=== PATIENT | female | born 1935 | race Caucasian/White ===

== ENCOUNTER 2019-01-30 14:51 | Observation (INO) ==
--- NOTE | 2019-01-30 15:14 | ERNOTE ---
Medical Problem HPI - General Time Seen by Provider: 01/30/19 14:51 Source: patient Exam Limitations: clinical condition - Immun/Allergies/Home Medications Immunizations: IMMUNIZATION HX Immunizations Up to Date Yes History of Influenza Vaccine Yes Hx Pneumococcal Vaccination Yes Allergies/Adverse Reactions: Allergies No Known Allergies Allergy (Verified 01/30/19 14:59) Home Medications: HOME MEDICATIONS Aspirin [Aspirin Chewable] 81 mg PO DAILY 03/25/18 [Last Taken 09/03/18] Donepezil HCl [Aricept] 5 mg PO DAILY 03/25/18 [Last Taken 09/03/18] memantine 5 mg tablet 5 mg PO BID 09/24/18 [Last Taken Unknown] Albuterol Sulfate [Albuterol Sulfate 2.5 MG/0.5ML] 1 vial INHALATION QID 01/30/19 [Last Taken Unknown] Albuterol Sulfate/Ipratropium [Duoneb 2.5-0.5MG/3ML Soln] 3 ml INHALATION PRN 01/30/19 [Last Taken Unknown] - History of Present History Narrative: Patient has dementia. According to her son who lives with her she has been declining over the last 2-3 days, has not had much to eat or drink, has not made it out of bed and has been very little responsive today. She fell a few days ago, no reported head injury. When asking about bleeds as patient look pale, son states that he notices blood smears in the toilet bowl but doesn't know where the blood came from. Patient is unable to give story Medical History (Last Reviewed 01/30/19 @ 16:43 by Cynthia Montenegro MD) Alzheimer's dementia COPD (chronic obstructive pulmonary disease) CVA (cerebral vascular accident) Onset Date: Unknown Cellulitis Left wrist pain Onset Date: ~08/2018 Surgical History: Surgical History (Last Reviewed 01/30/19 @ 16:43 by Cynthia Montenegro MD) H/O removal of cyst Onset Date: Unknown left wrist Family History: Family History (Last Reviewed 01/30/19 @ 14:58 by Bhavani Hernandez RN) Mother Father Social History: Preferred Language Fijian Smoking Status Former smoker Abuse History No History of abuse Psych History No pertinent hx (Last Updated 09/24/18 @ 11:48 by RG Balderas) No Social History Section defined Physical Exam - Physical Exam General Appearance: Present: wd/wn, lethargic, other - at times responds to pain at other times opens eyes when spoken to and mumbles in response Head Exam: Present: normal inspection, no evidence of injury Eye Exam: Normal inspection: bilateral, PERRL: bilateral Ears, Nose, Throat: Present: normal pharynx, dry mucous membranes Respiratory: Present: no respiratory distress, no accessory muscle use, lungs clear, decreased breath sounds Cardiovascular/Chest: Present: regular rate, rhythm, no murmur Gastrointestinal/Abdominal: Present: nondistended, soft Extremity Exam: Present: no edema Neurological Exam: Present: other Skin Exam: Present: warm/dry, pallor Progress - Results and Orders Patient's Lab Results:: I have reviewed the patient's lab results. - Vital Signs Patient's Vital Signs:: I have reviewed the patient's vital signs. - EKG EKG #1 EKG: NSR, nonspecific ST T wave changes EKG read: Interp. by me - CT/Ultrasound CT/Ultrasound Narrative: CT head: no acute changes - Progress/Reassessment Progress Note-Subjective: 01/30/19 15:12 discussed with son, full code status at this time 01/30/19 16:08 discussed test results with son, anemia might be caused by GI bleed related to aspirin and recent indocin use a few months ago discussed with Dr Walton, okay to admit for observation for dehydration and anemia, Hb 7.4 expect to drop below 7 with hydration, also history of CVA and dementia worsened by anemia, will give one unit of RBCs Departure Clinical Impression: Dehydration, Memory impairment, Mental status, decreased Anemia Qualifiers: Anemia type: unspecified type Qualified Code(s): D64.9 - Anemia, unspecified - Departure Disposition: Still a patient Condition: Stable
[2019-01-30 15:16] LABS: Hematocrit 25.8 % (37.0-47.0); Mean Cell Volume 85.7 fl (78-100); Mean Corpuscular Hemoglobin 24.6 pg (27-31); Mean Corpuscular Hgb Conc 28.7 g/dl (32-36); Mean Platelet Volume 10.3 fl (8-12.5); Neutrophil # 5.2 K/mm3 (1.3-6.0); Neutrophil % 81.8 % (42-75.0); Platelet Count 257 K/mm3 (150-450); Red Blood Count 3.01 M/mm3 (4.2-5.4); Red Cell Distribution Width 16.4 % (11.5-14.0); White Blood Count 6.3 K/mm3 (4.0-10.5)
[2019-01-30 15:22] LABS: Hemoglobin 7.4 gm/dL (12.5-16.0)
[2019-01-30] MEDS ORDERED: NORMAL SALINE 1,000 ML IV ONE (15:30)
[2019-01-30 15:33] LABS: Albumin * 3.1 gm/dl (3.4-5.0); Anion Gap 23.8 mmol/L (6.8-13.8); BUN/Creatinine Ratio 27.9 (9.0-21.6); Bilirubin, Total 1.5 mg/dL (0.0-1.1); Ca. Corrected For Albumin 9.7 mg/dL (8.4-10.2); Calcium * 9.3 mg/dL (7.9-10.9); Carbon Dioxide 17.4 mmol/L (24-32.6); Potassium 4.2 mmol/L (3.4-4.6); Total Protein 7.4 gm/dL (6.2-8.2)
[2019-01-30 15:43] LABS: Urine Appearance Clear (CLEAR); Urine Color Yellow
[2019-01-30 15:44] LABS: Urine Bilirubin Negative (NEGATIVE); Urine Blood Negative /ul (NEGATIVE); Urine Ketone 15 mg/dL (NEGATIVE); Urine Nitrite Negative (NEGATIVE); Urine Protein Negative (NEGATIVE); Urine Specific Gravity 1.025 SP.GR. (1.005-1.010); Urine Urobilinogen Normal (NORMAL); Urine pH 5.5 pH (5.0-7.0)
[2019-01-30 15:45] LABS: Urine Bacteria None Seen; Urine RBC None Seen /hpf (0-5); Urine WBC None Seen /hpf (0-5)
[2019-01-30] MEDS ORDERED: ACETAMINOPHEN 325 MG TABLET PO ONE (16:02)
[2019-01-30] MEDS ORDERED: ACETAMINOPHEN 325 MG TABLET PO PRN (19:55)
--- NOTE | 2019-01-30 20:15 | HP ---
Chief Complaint - Chief Complaint Date of Service: 01/30/19 Time of Service: 20:01 Chief Complaint: I feel weak History of Present Illness: 83-year-old female with past medical history of vascular dementia, old CVA, COPD, was brought to our ER due to worsening generalized weakness, anorexia of several days duration, and an inability to get out of bed according to her son. The provider of the history was a patient's son who reports that 3 days ago he found his mother on the floor after an apparent unwitnessed fall but denied loss of consciousness or any trauma to the patient's head. The son reports that after the fall the patient became more hypoactive and refused to eat or drink and that she has not had any food or fluids for more than 2 days. This morning patient was unable to rise in the bed and became less responsive than usual which concerned him enough to make him bring her to the hospital. Of interest, the patient's son reports that several weeks ago he noticed bright red blood and her stools in the toilet bowl. He was unable to recall the last time he witnessed this. ER labs demonstrated anemia with a hemoglobin of 7.4, and elevated BUN and creatinine likely secondary to her dehydration. Head CT was n egative for any acute findings. Medical History (Last Reviewed 01/30/19 @ 18:51 by Yocasta Mahoney RN) Alzheimer's dementia COPD (chronic obstructive pulmonary disease) CVA (cerebral vascular accident) Onset Date: Unknown Cellulitis Left wrist pain Onset Date: ~08/2018 Surgical History: Surgical History (Last Reviewed 01/30/19 @ 18:51 by Yocasta Mahoney RN) H/O removal of cyst Onset Date: Unknown left wrist Family History: Family History (Last Reviewed 01/30/19 @ 18:51 by Yocasta Mahoney RN) Mother Father Social History: Patient Lives/Resources Home Utilized Occupation retired Preferred Language Honduran Do you have any mandaen or No cultural preference? Smoking Status Former smoker Have you smoked in the past 12 No months Abuse History No History of abuse Psych History No pertinent hx Alcohol Use none Drug Use none (Last Updated 09/24/18 @ 11:48 by RG Balderas) No Social History Section defined Peds Patient Hx - Developmental: No Pertinent Hx Peds Patient Hx - Medical: No Pertinent Hx Peds Patient Hx - Cardiac/Respiratory: No Pertinent Hx Peds Patient Hx - Surgical: No Surgical History Patient History - Cancer: No Hx of Cancer Review Of Systems (GEN) - Review of Systems Generalized/Overall Review: Present: Weakness, Malaise EENTM: Present: No Symptoms Reported Respiratory: Present: No Symptoms Reported Cardiac: Present: No Symptoms Reported Abdominal: Present: Bright blood from rectum Genitourinary: Present: No Symptoms Reported Musculoskeletal: Present: No Symptoms Reported Neurological: Present: Weakness, Pre-existing Deficit Skin: Present: No Symptoms Reported Endocrine: Present: No Symptoms Reported Immunizations: IMMUNIZATION HX Immunizations Up to Date Yes History of Influenza Vaccine Yes Hx Pneumococcal Vaccination Yes Allergies/Adverse Reactions: Allergies Allergy/AdvReac Type Severity Reaction Status Date / Time No Known Allergies Allergy Verified 01/30/19 18:51 Home Medications: HOME MEDICATIONS Aspirin [Aspirin Chewable] 81 mg PO DAILY 03/25/18 [Last Taken 09/03/18] Donepezil HCl [Aricept] 5 mg PO DAILY 03/25/18 [Last Taken 09/03/18] memantine 5 mg tablet 5 mg PO BID 09/24/18 [Last Taken Unknown] Albuterol Sulfate [Albuterol Sulfate 2.5 MG/0.5ML] 1 vial INHALATION QID 01/30/19 [Last Taken Unknown] Albuterol Sulfate/Ipratropium [Duoneb 2.5-0.5MG/3ML Soln] 3 ml INHALATION PRN 01/30/19 [Last Taken Unknown] Exam - Exam Vital Signs: Vital Signs - Last Taken Temp 36.3 C 01/30/19 18:55 Pulse 78 01/30/19 18:55 Resp 18 01/30/19 18:55 BP 122/51 01/30/19 18:55 Pulse Ox 96 01/30/19 18:55 Constitutional: Present: Alert, Cooperative, No distress, Elderly, Thin and frail ENT Exam: Present: normal ENT inspection, pharynx normal, hard of hearing Eye Exam: bilateral eye: normal inspection, PERRL, EOMI Neck: Present: non-tender, full range of motion, supple, normal inspection, trachea midline Back Exam: Present: normal inspection, no CVA tenderness, no vertebral tenderness Breasts: Present: Exam deferred Respiratory: Present: chest non-tender, lungs clear, normal breath sounds, no respiratory distress, no accessory muscle use Cardiovascular/Chest: Present: normal peripheral pulses, regular rate, rhythm, no chest tenderness, no edema, no gallop, no JVD, no murmur Peripheral Pulses: carotid (R): 3+, carotid (L): 3+, femoral (R): 3+, femoral (L): 3+, dorsalis-pedis (R): 3+, dorsalis-pedis (L): 3+ Abdomen: Present: Normal bowel sounds, soft, nontender, nondistended, no rebound tenderness, no hepatospenomegaly, no masses /Rectal: Present: Exam deferred Extremity: Present: normal range of motion, non-tender, normal inspection, no pedal edema, no calf tenderness, normal capillary refill, pelvis stable Skin Exam: Present: normal color, warm/dry, no cyanosis Lymphatic: Present: no adenopathy Neurologic: Present: ocular pathologist II-XII nml as tested, alert, normal mood/affect, disoriented x 3 Appearance: Present: appropriate appearance, neat, impaired insight, impaired recent memory, impaired remote memory Eye contact: Present: cooperative, good eye contact, normal speech Thoughts: Present: no apparent hallucination, incoherent Diagnostic Studies: Abnormal Lab Results 01/30/19 01/30/19 01/30/19 Range/Units 15:10 15:10 15:10 RBC 3.01 L (4.2-5.4) M/mm3 Hgb 7.4 L* D (12.5-16.0) gm/dL Hct 25.8 L (37.0-47.0) % MCH 24.6 L (27-31) pg MCHC 28.7 L (32-36) g/dl RDW 16.4 H (11.5-14.0) % Neutrophils % 81.8 H (42-75.0) % Lymphocytes % 12.0 L (20-51) % Lymphocytes # 0.76 L (1.5-3.5) k/mm3 Carbon Dioxide 17.4 L (24-32.6) mmol/L Anion Gap 23.8 H (6.8-13.8) mmol/L BUN 46 H D (3-23) mg/dL Creatinine 1.65 H D (0.4-1.4) mg/dL Est GFR (Non-Af Amer) 32 L D (60-130) mL/min BUN/Creatinine Ratio 27.9 H (9.0-21.6) Total Bilirubin 1.5 H (0.0-1.1) mg/dL ALT 11 L (19-67) U/L Albumin 3.1 L (3.4-5.0) gm/dl Crossmatch See Detail Laboratory Results WBC 6.3 K/mm3 (4.0-10.5) 01/30/19 15:10 RBC 3.01 M/mm3 (4.2-5.4) L 01/30/19 15:10 Hgb 7.4 gm/dL (12.5-16.0) L* D 01/30/19 15:10 Hct 25.8 % (37.0-47.0) L 01/30/19 15:10 MCV 85.7 fl (78-100) 01/30/19 15:10 MCH 24.6 pg (27-31) L 01/30/19 15:10 MCHC 28.7 g/dl (32-36) L 01/30/19 15:10 RDW 16.4 % (11.5-14.0) H 01/30/19 15:10 Plt Count 257 K/mm3 (150-450) 01/30/19 15:10 MPV 10.3 fl (8-12.5) 01/30/19 15:10 Immature Gran % (Auto) 0.30 % (0.001-0.429) 01/30/19 15:10 Immature Gran # (Auto) 0.02 K/mm3 (0.000-0.0310) 01/30/19 15:10 Neutrophils % 81.8 % (42-75.0) H 01/30/19 15:10 Lymphocytes % 12.0 % (20-51) L 01/30/19 15:10 Monocytes % 4.9 % (0.0-9) 01/30/19 15:10 Eosinophils % 0.2 % (0.0-3.0) 01/30/19 15:10 Basophils % 0.8 % (0.0-1.0) 01/30/19 15:10 Nucleated RBC % 0.0 k/mm3 (0-1) 01/30/19 15:10 Neutrophils # 5.2 K/mm3 (1.3-6.0) 01/30/19 15:10 Lymphocytes # 0.76 k/mm3 (1.5-3.5) L 01/30/19 15:10 Monocytes # 0.3 k/mm3 (0.0-1.0) 01/30/19 15:10 Eosinophils # 0.0 k/mm3 (0.0-0.7) 01/30/19 15:10 Absolute Basophils 0.1 k/mm3 (0.0-0.1) 01/30/19 15:10 Sodium 141 mmol/L (132-142) 01/30/19 15:10 Plasma Sodium 141 mmol/L (130-142) 01/30/19 15:10 Potassium 4.2 mmol/L (3.4-4.6) 01/30/19 15:10 Chloride 104 mmol/L (97-106) 01/30/19 15:10 Carbon Dioxide 17.4 mmol/L (24-32.6) L 01/30/19 15:10 Anion Gap 23.8 mmol/L (6.8-13.8) H 01/30/19 15:10 BUN 46 mg/dL (3-23) H D 01/30/19 15:10 Creatinine 1.65 mg/dL (0.4-1.4) H D 01/30/19 15:10 Est GFR (Non-Af Amer) 32 mL/min (60-130) L D 01/30/19 15:10 BUN/Creatinine Ratio 27.9 (9.0-21.6) H 01/30/19 15:10 Random Glucose 100 mg/dL (70-110) 01/30/19 15:10 Calcium 9.3 mg/dL (7.9-10.9) 01/30/19 15:10 Calcium Adj for Albumin 9.7 mg/dL (8.4-10.2) 01/30/19 15:10 Total Bilirubin 1.5 mg/dL (0.0-1.1) H 01/30/19 15:10 AST 18 U/L (0-48) 01/30/19 15:10 ALT 11 U/L (19-67) L 01/30/19 15:10 Alkaline Phosphatase 118 U/L (50-170) 01/30/19 15:10 Total Protein 7.4 gm/dL (6.2-8.2) 01/30/19 15:10 Albumin 3.1 gm/dl (3.4-5.0) L 01/30/19 15:10 Urine Color Yellow 01/30/19 14:52 Urine Appearance Clear (CLEAR) 01/30/19 14:52 Urine pH 5.5 pH (5.0-7.0) 01/30/19 14:52 Ur Specific [place] 1.025 SP.GR. (1.005-1.010) 01/30/19 14:52 Urine Protein Negative mg/dL (NEGATIVE) 01/30/19 14:52 Urine Glucose (UA) Negative mg/dL (NEGATIVE) 01/30/19 14:52 Urine Ketones 15 mg/dL (NEGATIVE) 01/30/19 14:52 Urine Blood Negative /ul (NEGATIVE) 01/30/19 14:52 Urine Nitrate Negative (NEGATIVE) 01/30/19 14:52 Urine Bilirubin Negative mg/dl (NEGATIVE) 01/30/19 14:52 Urine Urobilinogen Normal EU/dl (NORMAL) 01/30/19 14:52 Ur Leukocyte Esterase Negative /ul (NEGATIVE) 01/30/19 14:52 Urine RBC None seen /hpf (0-5) 01/30/19 14:52 Urine WBC None seen /hpf (0-5) 01/30/19 14:52 Ur Epithelial Cells None seen /hpf (0-5) 01/30/19 14:52 Urine Bacteria None seen (NONE) 01/30/19 14:52 Urine Culture Comments No culture indicated 01/30/19 14:52 Blood Type A Negative 01/30/19 15:10 Antibody Screen Negative 01/30/19 15:10 Crossmatch See Detail 01/30/19 15:10 Assessment/Plan - Narrative Narrative: After evaluating patient and reviewing the medical record decision to admit with a diagnosis of moderate dehydration and anemia was taken. Patient will be admitted for treatment with IV fluids and 1 unit of packed red blood cells to treat anemia. Follow-up labs will be ordered to reevaluate electrolytes kidney function as well as hemoglobin. - Assessment/Plan (1) Moderate dehydration Problem: Acute (2) Anemia Problem: Acute Qualifiers: Anemia type: unspecified type Qualified Code(s): D64.9 - Anemia, unspecified (3) Decreased oral intake Problem: Acute (4) Anorexia Problem: Acute (5) Frailty syndrome in geriatric patient Problem: Chronic (6) Alzheimer's dementia Problem: Chronic
[2019-01-30] MEDS ORDERED: ALBUTEROL SULFATE/IPRATROPIUM 3 ML NEBU IH PRN (20:30)
[2019-01-30] MEDS: ALBUTEROL SULFATE 2.5 MG/0.5 ML VIAL.NEB IH SCH (21:21)
[2019-01-30] MEDS: MEMANTINE HCL 10 MG TABLET PO SCH (22:42)
[2019-01-31 01:27] LABS: Hemoglobin 9.3 gm/dL (12.5-16.0)
[2019-01-31] MEDS ORDERED: NORMAL SALINE 1,000 ML IV ONE (01:42)
[2019-01-31 06:05] LABS: Hematocrit 29.8 % (37.0-47.0); Hemoglobin 9.2 gm/dL (12.5-16.0); Mean Cell Volume 85.6 fl (78-100); Mean Corpuscular Hemoglobin 26.4 pg (27-31); Mean Corpuscular Hgb Conc 30.9 g/dl (32-36); Mean Platelet Volume 10.1 fl (8-12.5); Neutrophil # 4.6 K/mm3 (1.3-6.0); Neutrophil % 74.4 % (42-75.0); Platelet Count 184 K/mm3 (150-450); Red Blood Count 3.48 M/mm3 (4.2-5.4); Red Cell Distribution Width 15.2 % (11.5-14.0); White Blood Count 6.1 K/mm3 (4.0-10.5)
[2019-01-31] MEDS: ALBUTEROL SULFATE 2.5 MG/0.5 ML VIAL.NEB IH SCH ×2 (06:08→10:23)
[2019-01-31 06:31] LABS: Albumin * 2.6 gm/dl (3.4-5.0); Anion Gap 20.4 mmol/L (6.8-13.8); BUN/Creatinine Ratio 29.8 (9.0-21.6); Bilirubin, Total 1.7 mg/dL (0.0-1.1); Ca. Corrected For Albumin 9.2 mg/dL (8.4-10.2); Calcium * 8.4 mg/dL (7.9-10.9); Carbon Dioxide 16.4 mmol/L (24-32.6); Potassium 3.8 mmol/L (3.4-4.6); Total Protein 6.3 gm/dL (6.2-8.2)
[2019-01-31] MEDS: MEMANTINE HCL 10 MG TABLET PO SCH (08:07)
[2019-01-31] MEDS ORDERED: FAMOTIDINE 20 MG TABLET PO SCH (09:00)
[2019-01-31] MEDS ORDERED: DONEPEZIL HCL 5 MG TABLET PO SCH (09:00)
[2019-01-31] MEDS ORDERED: DOCUSATE SODIUM 100 MG CAPSULE PO SCH (09:00)
--- NOTE | 2019-01-31 11:11 | DS ---
(1) Moderate dehydration Problem: Resolved (2) Anemia Problem: Chronic Qualifiers: Anemia type: unspecified type Qualified Code(s): D64.9 - Anemia, unspecified (3) Decreased oral intake Problem: Chronic (4) Anorexia Problem: Chronic (5) Frailty syndrome in geriatric patient Problem: Chronic (6) Alzheimer's dementia Problem: Chronic Description of Stay: 83-year-old female admitted for moderate dehydration, and anemia was evaluated at bedside and was found to be afebrile and in no acute distress. Patient was transfused 1 unit of PRBCs to treat her anemia, hemoglobin has improved and has increased from 7.4 to 9 . Patient appears less pale and is sitting up in a chair indicating that she has regained some strength. She was evaluated by the [facility] procedures rn who reports that the patient is malnourished and has lost a significant amount of weight since her last hospitalization. She recommends Ensure meal replacements and a soft diet. All this was explained to the patient's son who is the stiff leg derrick operator, he reports that it has become difficult to care for her since she lives alone in a trailer home. He did however say that he will discuss long-term living arrangements with his sister and for the mother to stay with his sister the first couple posthospitalization days. He was instructed to follow-up with the patient's PCP within the next week. Patient has a suspected GI bleeding although she did not display any evidence of active bleeding while here with us in the hospital however since he reported that on several occasions he has noticed bright red blood in the toilet, it was recommended that he take her to the PCP for evaluation of the finding. Procedures Performed: none Results and Findings: Lab Pending Results 01/30/19 14:52: Urine Color Yellow, Urine Appearance Clear, Urine pH 5.5, Ur Specific [place] 1.025, Urine Protein Negative, Urine Glucose (UA) Negative, Urine Ketones 15, Urine Blood Negative, Urine Nitrate Negative, Urine Bilirubin Negative, Urine Urobilinogen Normal, Ur Leukocyte Esterase Negative, Urine RBC None seen, Urine WBC None seen, Ur Epithelial Cells None seen, Urine Bacteria None seen, Urine Culture Comments No culture indicated 01/30/19 15:10: WBC 6.3, RBC 3.01 L, Hgb 7.4 L* D, Hct 25.8 L, MCV 85.7, MCH 24.6 L, MCHC 28.7 L, RDW 16.4 H, Plt Count 257, MPV 10.3, Immature Gran % (Auto) 0.30, Immature Gran # (Auto) 0.02, Neutrophils % 81.8 H, Lymphocytes % 12.0 L, Monocytes % 4.9, Eosinophils % 0.2, Basophils % 0.8, Nucleated RBC % 0.0, Neutrophils # 5.2, Lymphocytes # 0.76 L, Monocytes # 0.3, Eosinophils # 0.0, Absolute Basophils 0.1 01/30/19 15:10: Sodium 141, Plasma Sodium 141, Potassium 4.2, Chloride 104, Carbon Dioxide 17.4 L, Anion Gap 23.8 H, BUN 46 H D, Creatinine 1.65 H D, Est GFR (Non-Af Amer) 32 L D, BUN/Creatinine Ratio 27.9 H, Random Glucose 100, Calcium 9.3, Calcium Adj for Albumin 9.7, Total Bilirubin 1.5 H, AST 18, ALT 11 L, Alkaline Phosphatase 118, Total Protein 7.4, Albumin 3.1 L 01/30/19 15:10: Blood Type A Negative, Antibody Screen Negative, Crossmatch See Detail 01/31/19 01:25: Hgb 9.3 L, Hct 30.0 L 01/31/19 05:50: WBC 6.1, RBC 3.48 L, Hgb 9.2 L, Hct 29.8 L, MCV 85.6, MCH 26.4 L, MCHC 30.9 L, RDW 15.2 H, Plt Count 184, MPV 10.1, Immature Gran % (Auto) 0.50 H, Immature Gran # (Auto) 0.03, Neutrophils % 74.4, Lymphocytes % 15.5 L, Monocytes % 8.2, Eosinophils % 0.7, Basophils % 0.7, Nucleated RBC % 0.0, Neutrophils # 4.6, Lymphocytes # 0.95 L, Monocytes # 0.5, Eosinophils # 0.0, Absolute Basophils 0.0 01/31/19 05:50: Sodium 142, Plasma Sodium 142, Potassium 3.8, Chloride 109 H, Carbon Dioxide 16.4 L, Anion Gap 20.4 H, BUN 42 H, Creatinine 1.41 H, Est GFR (Non-Af Amer) 38 L, BUN/Creatinine Ratio 29.8 H, Random Glucose 80, Calcium 8.4, Calcium Adj for Albumin 9.2, Total Bilirubin 1.7 H, AST 18, ALT 9 L, Alkaline Phosphatase 105, Total Protein 6.3, Albumin 2.6 L Discharge Location: Home Disposition: Home self-care Condition: Good Face to Face Encounter completed per [facility] Guidelines: No Discharge Activity: Activity as tolerated Discharge Diet: General/regular food, Mech soft Complete Home Medications List: Complete Home Medication List: Aspirin [Aspirin Chewable] 81 mg PO DAILY 03/25/18 Donepezil HCl [Aricept] 5 mg PO DAILY 03/25/18 memantine 5 mg tablet 5 mg PO BID 09/24/18 Albuterol Sulfate [Albuterol Sulfate 2.5 MG/0.5ML] 1 vial INHALATION QID 01/30/19 Albuterol Sulfate/Ipratropium [Duoneb 2.5-0.5MG/3ML Soln] 3 ml INHALATION PRN 01/30/19 Docusate Sodium [Colace] 100 mg PO DAILY cap 01/31/19
[2019-01-31 12:52] VITALS: BP 118/55
== END 2019-01-31 13:10 | disposition home or self-care (01) ==
LOC: ER 14:51 → MS 14:51
PROVIDERS: ADMIT Family Medicine; ATTEND Family Medicine
CPT/HCPCS: 36415; 36430; 70450; 80053; 81001; 85014; 85018; 85025; 86850; 86900; 93005; 94640; 94664; 96360; 96361; 99285; G0378; P9016

== ENCOUNTER 2019-02-01 14:32 | Observation (INO) ==
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
[2019-02-01 15:09] LABS: Hematocrit 30.2 % (37.0-47.0); Hemoglobin 9.3 gm/dL (12.5-16.0); Mean Cell Volume 86.5 fl (78-100); Mean Corpuscular Hemoglobin 26.6 pg (27-31); Mean Corpuscular Hgb Conc 30.8 g/dl (32-36); Mean Platelet Volume 10.7 fl (8-12.5); Neutrophil # 3.5 K/mm3 (1.3-6.0); Platelet Count 165 K/mm3 (150-450); Red Blood Count 3.49 M/mm3 (4.2-5.4); Red Cell Distribution Width 15.9 % (11.5-14.0); White Blood Count 4.7 K/mm3 (4.0-10.5)
[2019-02-01 15:38] LABS: Albumin * 2.7 gm/dl (3.4-5.0); Anion Gap 16.7 mmol/L (6.8-13.8); BUN/Creatinine Ratio 24.8 (9.0-21.6); Bilirubin, Total 1.2 mg/dL (0.0-1.1); Ca. Corrected For Albumin 9.5 mg/dL (8.4-10.2); Calcium * 8.8 mg/dL (7.9-10.9); Carbon Dioxide 19.9 mmol/L (24-32.6); Potassium 3.6 mmol/L (3.4-4.6); Total Protein 6.4 gm/dL (6.2-8.2)
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
[2019-02-01] MEDS ORDERED: DEXTROSE 5%-0.5 NORMAL SALINE 1,000 ML IV PRN (18:43)
[2019-02-02] MEDS: ALBUTEROL SULFATE/IPRATROPIUM 3 ML NEBU IH PRN ×2 (04:57→19:57)
[2019-02-02] MEDS: DEXTROSE 5%-0.5 NORMAL SALINE 1,000 ML IV PRN (06:22)
--- NOTE | 2019-02-02 09:11 | PN ---
Progess Note - Interim Date: 02/02/19 Time: 09:08 Narrative: 02/02/19 09:08 Patient has dementia. Poor PO intake with malnutrition. She could be failure to thrive and might need hospice care.
[2019-02-03] MEDS: DEXTROSE 5%-0.5 NORMAL SALINE 1,000 ML IV PRN ×2 (00:51→21:11)
--- NOTE | 2019-02-03 09:09 | PN ---
Subjective - Date and Time Seen Date: 02/02/19 Time: 09:00 Subjective Narrative: Patient was seen but forgot to do the progress notes. She was still confused and has poor PO intake. Objective - Review of Systems Misc: All systems neg except as marked - unable to get ROS due to her dementia - Vitals Vitals: Last Vital Signs Temp 36.7 C 02/03/19 07:22 Pulse 76 02/03/19 07:22 Resp 18 02/03/19 07:22 BP 120/59 02/03/19 07:22 Pulse Ox 95 02/03/19 07:22 - Exam Constitutional: Present: Alert - AAO x 1, Elderly, Thin and frail ENT Exam: Present: hard of hearing Neck: Present: supple Respiratory: Present: decreased breath sounds, No rales, No wheezing Cardiovascular/Chest: Present: regular rate, rhythm, no JVD, no murmur Abdomen: Present: Normal bowel sounds, soft, nontender, nondistended Extremity: Present: no pedal edema, no calf tenderness Assessment/Plan - Problems/Diagnosis (1) Failure to thrive Problem: Acute Narrative: has poor PO intake. will see if she qualifies for Hospice. continue with IVf. (2) Alzheimer's dementia Problem: Chronic Qualifiers: Alzheimer's disease onset: late-onset Dementia behavioral disturbance: with out behavioral disturbance Qualified Code(s): G30.1 - Alzheimer's disease with late onset; F02.80 - Dementia in other diseases classified elsewhere without behavioral disturbance (3) Frailty syndrome in geriatric patient Problem: Chronic (4) Dehydration Problem: Acute (5) Anemia Problem: Chronic Qualifiers: Anemia type: unspecified type Qualified Code(s): D64.9 - Anemia, unspecified (6) Self-care deficit for feeding, bathing, and toileting Problem: Acute (7) Unsatisfactory living conditions Problem: Acute (8) Need for protective service Problem: Acute
[2019-02-03] MEDS: ENOXAPARIN SODIUM 40 MG/0.4 ML SYRG SC SCH (09:59)
--- NOTE | 2019-02-03 10:18 | PN ---
Subjective - Date and Time Seen Date: 02/03/19 Time: 10:14 Subjective Narrative: Patient sitting on t the recliner. Still confused. eats very little but takes Ensure. Objective - Review of Systems Misc: All systems neg except as marked - unobtainable due pola mental status - Vitals Vitals: Last Vital Signs Temp 36.7 C 02/03/19 07:22 Pulse 76 02/03/19 07:22 Resp 18 02/03/19 07:22 BP 120/59 02/03/19 07:22 Pulse Ox 95 02/03/19 07:22 - Exam Constitutional: Present: Alert - AAO x 1, Elderly, Thin and frail ENT Exam: Present: hard of hearing Neck: Present: supple Respiratory: Present: decreased breath sounds, No rales, No wheezing Cardiovascular/Chest: Present: regular rate, rhythm, no gallop, no JVD Abdomen: Present: Normal bowel sounds, soft, nontender, nondistended Extremity: Present: no pedal edema, no calf tenderness Assessment/Plan Plan Narrative: continue with present management. - Problems/Diagnosis (1) Failure to thrive Problem: Acute Narrative: awaiting possible NH placement. possible Hospice. [facility] has been contacted. (2) Alzheimer's dementia Problem: Chronic Qualifiers: Alzheimer's disease onset: late-onset Dementia behavioral disturbance: without behavioral disturbance Qualified Code(s): G30.1 - Alzheimer's disease with late onset; F02.80 - Dementia in other diseases classified elsewhere without behavioral disturbance (3) Frailty syndrome in geriatric patient Problem: Chronic Narrative: Analyst [employer]/ Dieticiian has been consulted. Not a candidate for TPN/PEG due to her dementa. She might be also a Hospice care candidate. (4) Dehydration Problem: Acute (5) Anemia Problem: Chronic Qualifiers: Anemia type: unspecified type Qualified Code(s): D64.9 - Anemia, unspecified (6) Self-care deficit for feeding, bathing, and toileting Problem: Acute (7) Unsatisfactory living conditions Problem: Acute (8) Need for protective service Problem: Acute
[2019-02-03] MEDS: ALBUTEROL SULFATE/IPRATROPIUM 3 ML NEBU IH PRN (11:47)
[2019-02-04 05:25] LABS: Hematocrit 28.9 % (37.0-47.0); Hemoglobin 8.2 gm/dL (12.5-16.0); Mean Cell Volume 92.6 fl (78-100); Mean Corpuscular Hemoglobin 26.3 pg (27-31); Mean Corpuscular Hgb Conc 28.4 g/dl (32-36); Mean Platelet Volume 10.7 fl (8-12.5); Neutrophil # 1.9 K/mm3 (1.3-6.0); Neutrophil % 55.3 % (42-75.0); Platelet Count 148 K/mm3 (150-450); Red Blood Count 3.12 M/mm3 (4.2-5.4); Red Cell Distribution Width 16.5 % (11.5-14.0); White Blood Count 3.4 K/mm3 (4.0-10.5)
[2019-02-04 05:51] LABS: Anion Gap 14.6 mmol/L (6.8-13.8); BUN/Creatinine Ratio 15.7 (9.0-21.6); Carbon Dioxide 21.4 mmol/L (24-32.6); Estimated Creat Clear 34.1
[2019-02-04] MEDS: ENOXAPARIN SODIUM 40 MG/0.4 ML SYRG SC SCH (09:02)
[2019-02-04] MEDS: ALBUTEROL SULFATE/IPRATROPIUM 3 ML NEBU IH PRN (09:07)
--- NOTE | 2019-02-04 11:20 | PN ---
Subjective - Date and Time Seen Date: 02/04/19 Time: 11:10 Subjective Narrative: Patient scored a 8/30 on her MMSE. She is not capable to make her own decisions or manage her daily affairs. Objective - Review of Systems Misc: All systems neg except as marked - Unable to obtain due to mental status - Vitals Vitals: Last Vital Signs Temp 36.7 C 02/04/19 10:00 Pulse 84 02/04/19 10:00 Resp 16 02/04/19 10:00 BP 106/43 02/04/19 10:00 Pulse Ox 97 02/04/19 10:00 - Abnormal Lab Findings Abnormal Lab Findings: Abnormal Lab Results 02/04/19 02/04/19 Range/Units 05:00 05:00 WBC 3.4 L D (4.0-10.5) K/mm3 RBC 3.12 L (4.2-5.4) M/mm3 Hgb 8.2 L (12.5-16.0) gm/dL Hct 28.9 L (37.0-47.0) % MCH 26.3 L (27-31) pg MCHC 28.4 L (32-36) g/dl RDW 16.5 H (11.5-14.0) % Plt Count 148 L (150-450) K/mm3 Immature Gran % (Auto) 0.60 H (0.001-0.429) % Monocytes % 11.9 H (0.0-9) % Basophils % 1.8 H (0.0-1.0) % Lymphocytes # 0.94 L (1.5-3.5) k/mm3 Potassium 3.0 L (3.4-4.6) mmol/L Carbon Dioxide 21.4 L (24-32.6) mmol/L Anion Gap 14.6 H (6.8-13.8) mmol/L - Exam Constitutional: Present: Alert - AAO x 1 ENT Exam: Present: hard of hearing Neck: Present: supple Respiratory: Present: decreased breath sounds, No rales, No wheezing Cardiovascular/Chest: Present: regular rate, rhythm, no JVD, no murmur Abdomen: Present: Normal bowel sounds, soft, nontender, nondistended Extremity: Present: no pedal edema, no calf tenderness Assessment/Plan Plan Narrative: [facility] is trying to get a court order for court appointed guadianship. continue with present management. - Problems/Diagnosis (1) Failure to thrive Problem: Acute (2) Alzheimer's dementia Problem: Chronic Qualifiers: Alzheimer's disease onset: late-onset Dementia behavioral disturbance: without behavioral disturbance Qualified Code(s): G30.1 - Alzheimer's disease with late onset; F02.80 - Dementia in other diseases classified elsewhere without behavioral disturbance Narrative: MMSE. She is mentally incapable of making her own decisions. (3) Frailty syndrome in geriatric patient Problem: Chronic (4) Dehydration Problem: Acute (5) Anemia Problem: Chronic Qualifiers: Anemia type: unspecified type Qualified Code(s): D64.9 - Anemia, unspecified Narrative: I do not recommend to be aggressive with the management like EGD/colonoscopy due to mentation and advance age. (6) Self-care deficit for feeding, bathing, and toileting Problem: Acute (7) Unsatisfactory living conditions Problem: Acute (8) Need for protective service Problem: Acute
[2019-02-04] MEDS: POTASSIUM CHLORIDE 20 MEQ in DEXTROSE 5%-0.5 NORMAL SALINE 990 ML IV SCH (12:46)
[2019-02-05] MEDS: ALBUTEROL SULFATE/IPRATROPIUM 3 ML NEBU IH PRN ×2 (03:02→15:20)
[2019-02-05 06:15] LABS: Anion Gap 12.3 mmol/L (6.8-13.8); BUN/Creatinine Ratio 12.8 (9.0-21.6); Calcium * 8.2 mg/dL (7.9-10.9); Carbon Dioxide 22.8 mmol/L (24-32.6); Estimated Creat Clear 35.3; Potassium 3.1 mmol/L (3.4-4.6)
[2019-02-05] MEDS: ENOXAPARIN SODIUM 40 MG/0.4 ML SYRG SC SCH (08:25)
[2019-02-05] MEDS: POTASSIUM CHLORIDE 20 MEQ in DEXTROSE 5%-0.5 NORMAL SALINE 990 ML IV SCH (08:26)
--- NOTE | 2019-02-05 17:36 | PN ---
Subjective - Date and Time Seen Date: 02/05/19 Time: 10:10 Subjective Narrative: Neela Flores is an 83-year-old female patient of Dr. Cherelle Pleitez. She is mentally capable of making decisions on her own and it is not safe for her to live in her home any longer. penitentiary placement is being worked on at this time and she will probably be here until Thursday to establish placement. Her vital signs have been stable. She is in no distress at this time of my exam. She is very confused. Her speech is intelligible but inappropriate. No other new problems to report. Objective - Review of Systems Generalized/Overall Review: Reports: Weakness EENTM: Reports: No Symptoms Reported Respiratory: Reports: No Symptoms Reported Cardiac: Reports: No Symptoms Reported Abdominal: Reports: No Symptoms Reported Genitourinary Symptoms: Reports: No Symptoms Reported Musculoskeletal Complaints: Reports: No Symptoms Reported Neurological: Reports: Weakness Skin: Reports: No Symptoms Reported Endocrine: Reports: No Symptoms Reported - Vitals Vitals: Last Vital Signs Temp 36.6 C 02/05/19 10:19 Pulse 85 02/05/19 15:29 Resp 17 02/05/19 15:29 BP 137/51 02/05/19 10:19 Pulse Ox 98 02/05/19 15:20 - Abnormal Lab Findings Abnormal Lab Findings: Abnormal Lab Results 02/05/19 Range/Units 05:55 Potassium 3.1 L (3.4-4.6) mmol/L Carbon Dioxide 22.8 L (24-32.6) mmol/L - Exam Constitutional: Present: Alert, Elderly, Thin and frail. Absent: Oriented x3, Cooperative ENT Exam: Present: normal ENT inspection, hard of hearing Neck: Present: non-tender, full range of motion, supple, normal inspection, trachea midline Breasts: Present: Exam deferred Respiratory: Present: chest non-tender, lungs clear, normal breath sounds, no respiratory distress Cardiovascular/Chest: Present: normal peripheral pulses, regular rate, rhythm, no chest tenderness, no edema, no gallop, no JVD, no murmur, no rub Abdomen: Present: Normal bowel sounds, soft, nontender, nondistended /Rectal: Present: Exam deferred Extremity: Present: normal range of motion, non-tender, normal inspection, no pedal edema, slow capillary refill. Absent: lower extremity edema, leg pain, pedal edema, swelling Skin Exam: Present: normal color, warm/dry, no cyanosis Lymphatic: Present: no adenopathy Neurologic: Present: geodetic computator II-XII nml as tested, alert, disoriented x 3 Appearance: Present: appropriate appearance, impaired insight, impaired recent memory, impaired remote memory Eye contact: Present: cooperative, good eye contact, normal speech - But her speech is an appropriate and reflects her advanced dementia. Thoughts: Present: incoherent, other - Very confused Assessment/Plan Plan Narrative: Continue observation, supportive care, and monitoring until she is discharged. Anticipate she will be here through the weekend before finding custodial placement on Thursday. - Problems/Diagnosis (1) Alzheimer's dementia Problem: Chronic Qualifiers: Alzheimer's disease onset: late-onset Dementia behavioral disturbance: without behavioral disturbance Qualified Code(s): G30.1 - Alzheimer's disease with late onset; F02.80 - Dementia in other diseases classified elsewhere without behavioral disturbance (2) Mental status, decreased Problem: Chronic (3) Frailty syndrome in geriatric patient Problem: Chronic (4) Decreased oral intake Problem: Chronic (5) Anorexia Problem: Chronic
[2019-02-06] MEDS: POTASSIUM CHLORIDE 20 MEQ in DEXTROSE 5%-0.5 NORMAL SALINE 990 ML IV SCH (04:33)
[2019-02-06] MEDS: ALBUTEROL SULFATE/IPRATROPIUM 3 ML NEBU IH PRN (07:26)
[2019-02-06] MEDS: ENOXAPARIN SODIUM 40 MG/0.4 ML SYRG SC SCH (08:17)
--- NOTE | 2019-02-06 11:39 | PN ---
Subjective - Date and Time Seen Date: 02/06/19 Time: 10:10 Objective - Review of Systems Generalized/Overall Review: Reports: No Symptoms Reported EENTM: Reports: No Symptoms Reported Respiratory: Reports: No Symptoms Reported Cardiac: Reports: No Symptoms Reported Abdominal: Reports: No Symptoms Reported Genitourinary Symptoms: Reports: No Symptoms Reported Musculoskeletal Complaints: Reports: No Symptoms Reported Neurological: Reports: No Symptoms Reported Skin: Reports: No Symptoms Reported Endocrine: Reports: No Symptoms Reported Misc: All systems neg except as marked - Vitals Vitals: Last Vital Signs Temp 36.3 C 02/06/19 10:44 Pulse 81 02/06/19 10:44 Resp 18 02/06/19 10:44 BP 136/57 02/06/19 10:44 Pulse Ox 98 02/06/19 10:44 - Exam Constitutional: Present: Alert, Cooperative, No distress, Elderly, Thin and frail. Absent: Oriented x3 ENT Exam: Present: normal ENT inspection, hard of hearing Neck: Present: non-tender, limited range of motion Breasts: Present: Exam deferred, Nontender Respiratory: Present: chest non-tender, normal breath sounds, no respiratory distress, no accessory muscle use, wheezing Cardiovascular/Chest: Present: normal peripheral pulses, regular rate, rhythm, no chest tenderness, no edema, no gallop, no JVD, no murmur, no rub Abdomen: Present: Normal bowel sounds, soft, nontender, nondistended, no rebound tenderness, no hepatospenomegaly, no masses /Rectal: Present: Exam deferred Extremity: Present: normal range of motion, non-tender, normal inspection, no pedal edema, no calf tenderness Skin Exam: Present: normal color, warm/dry, no cyanosis Lymphatic: Present: no adenopathy Neurologic: Present: dish room worker II-XII nml as tested Appearance: Present: appropriate appearance, appropriate insight, neat, impaired insight, impaired recent memory, impaired remote memory Eye contact: Present: cooperative, normal speech - Phonation is normal but were structure and syntax are very poor. Her speech is confabulated and nonsensical., avoids eye contact Thoughts: Present: no apparent hallucination, incoherent, other - Confusion Assessment/Plan Plan Narrative: 1. Continue current therapy. No nursing concerns voiced today. Apparently she will be here until a court-ordered guardian is assigned. Nursing homes will not except until she has a guardian. - Problems/Diagnosis (1) Alzheimer's dementia Problem: Chronic Qualifiers: Alzheimer's disease onset: late-onset Dementia behavioral disturbance: without behavioral disturbance Qualified Code(s): G30.1 - Alzheimer's disease with late onset; F02.80 - Dementia in other diseases classified elsewhere without behavioral disturbance (2) Mental status, decreased Problem: Chronic (3) Frailty syndrome in geriatric patient Problem: Chronic (4) Decreased oral intake Problem: Chronic (5) Anorexia Problem: Chronic
[2019-02-06] MEDS ORDERED: MAGNESIUM HYDROXIDE 30 ML UDC PO ONE (18:00)
[2019-02-06] MEDS: ALBUTEROL SULFATE 2.5 MG/0.5 ML VIAL.NEB IH SCH (19:14)
[2019-02-06] MEDS: diphenhydrAMINE HCL 25 MG CAPSULE PO SCH (21:07)
[2019-02-07] MEDS: POTASSIUM CHLORIDE 20 MEQ in DEXTROSE 5%-0.5 NORMAL SALINE 990 ML IV SCH ×2 (00:39→20:13)
[2019-02-07] MEDS: ALBUTEROL SULFATE 2.5 MG/0.5 ML VIAL.NEB IH SCH ×4 (06:32→18:09)
--- NOTE | 2019-02-07 08:25 | PN ---
Subjective - Date and Time Seen Date: 02/07/19 Time: 08:21 Subjective Narrative: patient is still confused, not eating that much. son wants her namenda and aricept restarted.awaiting [facility] placement for NH. Objective - Review of Systems Misc: All systems neg except as marked - unobtainable due to mental status - Vitals Vitals: Last Vital Signs Temp 36.8 C 02/07/19 07:00 Pulse 72 02/07/19 07:00 Resp 18 02/07/19 07:00 BP 135/52 02/07/19 07:00 Pulse Ox 100 02/07/19 07:00 - Exam Constitutional: Present: Alert - AAO x 1, Elderly, Thin and frail ENT Exam: Present: hard of hearing Neck: Present: supple Respiratory: Present: normal breath sounds, No rales, No wheezing Cardiovascular/Chest: Present: regular rate, rhythm, no JVD, no murmur Abdomen: Present: soft, nontender, nondistended, no rebound tenderness Extremity: Present: no pedal edema, no calf tenderness Assessment/Plan Plan Narrative: continue with present management. will give oral K supplement today. continue with IVF with KCl. Fluid balance 240-480. - Problems/Diagnosis (1) Failure to thrive Problem: Acute (2) Alzheimer's dementia Problem: Chronic Qualifiers: Alzheimer's disease onset: late-onset Dementia behavioral disturbance: without behavioral disturbance Qualified Code(s): G30.1 - Alzheimer's disease with late onset; F02.80 - Dementia in other diseases classified elsewhere without behavioral disturbance (3) Frailty syndrome in geriatric patient Problem: Chronic (4) Dehydration Problem: Acute (5) Anemia Problem: Chronic Qualifiers: Anemia type: unspecified type Qualified Code(s): D64.9 - Anemia, unspecified (6) Self-care deficit for feeding, bathing, and toileting Problem: Acute (7) Unsatisfactory living conditions Problem: Acute (8) Need for protective service Problem: Acute
[2019-02-07] MEDS ORDERED: POTASSIUM CHLORIDE 10 MEQ TABLET.SA PO ONE (08:30)
[2019-02-07] MEDS: MEMANTINE HCL 10 MG TABLET PO SCH ×2 (09:30→20:08)
[2019-02-07] MEDS: ENOXAPARIN SODIUM 40 MG/0.4 ML SYRG SC SCH (09:30)
[2019-02-07] MEDS: DONEPEZIL HCL 5 MG TABLET PO SCH (09:30)
[2019-02-07] MEDS: ALBUTEROL SULFATE/IPRATROPIUM 3 ML NEBU IH PRN ×2 (10:24→21:02)
[2019-02-07] MEDS ORDERED: BISACODYL 10 MG SUPP.RECT RC ONE (14:14)
[2019-02-07] MEDS: diphenhydrAMINE HCL 25 MG CAPSULE PO SCH (20:08)
[2019-02-07] MEDS: MIRTAZAPINE 15 MG TABLET PO SCH (20:09)
[2019-02-08] MEDS: ALBUTEROL SULFATE/IPRATROPIUM 3 ML NEBU IH PRN (05:05)
[2019-02-08] MEDS: ALBUTEROL SULFATE 2.5 MG/0.5 ML VIAL.NEB IH SCH ×4 (06:34→18:01)
--- NOTE | 2019-02-08 08:43 | PN ---
Subjective - Date and Time Seen Date: 02/08/19 Time: 08:37 Subjective Narrative: patient says she is doing fine. just trying to sleep. Objective - Review of Systems Misc: All systems neg except as marked - unreliable due to patient's mental status. - Vitals Vitals: Last Vital Signs Temp 36.8 C 02/08/19 06:35 Pulse 87 02/08/19 06:35 Resp 16 02/08/19 06:35 BP 148/72 02/08/19 06:35 Pulse Ox 95 02/08/19 06:35 - Exam Constitutional: Present: Alert - AA x 1., Elderly, Thin and frail ENT Exam: Present: hard of hearing Neck: Present: supple Respiratory: Present: normal breath sounds, No rales, No wheezing Cardiovascular/Chest: Present: regular rate, rhythm, no JVD, no murmur Abdomen: Present: Normal bowel sounds, soft, nontender, nondistended Extremity: Present: no pedal edema, no calf tenderness Assessment/Plan Plan Narrative: awaiting NH placement. continue with present management. has negative fluid balance for the last 2 days. will increase IVF. - Problems/Diagnosis (1) Failure to thrive Problem: Acute (2) Alzheimer's dementia Problem: Chronic Qualifiers: Alzheimer's disease onset: late-onset Dementia behavioral disturbance: without behavioral disturbance Qualified Code(s): G30.1 - Alzheimer's disease with late onset; F02.80 - Dementia in other diseases classified elsewhere without behavioral disturbance (3) Frailty syndrome in geriatric patient Problem: Chronic (4) Dehydration Problem: Acute (5) Anemia Problem: Chronic Qualifiers: Anemia type: unspecified type Qualified Code(s): D64.9 - Anemia, unspecified (6) Self-care deficit for feeding, bathing, and toileting Problem: Acute (7) Unsatisfactory living conditions Problem: Acute (8) Need for protective service Problem: Acute
[2019-02-08] MEDS: DONEPEZIL HCL 5 MG TABLET PO SCH (09:21)
[2019-02-08] MEDS: DOCUSATE SODIUM 100 MG CAPSULE PO SCH (09:22)
[2019-02-08] MEDS: ENOXAPARIN SODIUM 40 MG/0.4 ML SYRG SC SCH (09:24)
[2019-02-08] MEDS: MEMANTINE HCL 10 MG TABLET PO SCH ×2 (09:31→21:01)
[2019-02-08] MEDS: POTASSIUM CHLORIDE 20 MEQ in DEXTROSE 5%-0.5 NORMAL SALINE 990 ML IV SCH (17:06)
[2019-02-08] MEDS: MIRTAZAPINE 15 MG TABLET PO SCH (21:01)
[2019-02-08] MEDS: diphenhydrAMINE HCL 25 MG CAPSULE PO SCH (21:01)
[2019-02-09] MEDS: ALBUTEROL SULFATE/IPRATROPIUM 3 ML NEBU IH PRN (04:40)
[2019-02-09 05:32] LABS: Hematocrit 28.8 % (37.0-47.0); Hemoglobin 8.6 gm/dL (12.5-16.0); Mean Cell Volume 91.1 fl (78-100); Mean Corpuscular Hemoglobin 27.2 pg (27-31); Mean Corpuscular Hgb Conc 29.9 g/dl (32-36); Mean Platelet Volume 9.9 fl (8-12.5); Neutrophil % 65.6 % (42-75.0); Platelet Count 234 K/mm3 (150-450); Red Blood Count 3.16 M/mm3 (4.2-5.4); Red Cell Distribution Width 18.7 % (11.5-14.0); White Blood Count 4.5 K/mm3 (4.0-10.5)
[2019-02-09 05:58] LABS: Anion Gap 13.9 mmol/L (6.8-13.8); BUN/Creatinine Ratio 6.7 (9.0-21.6); Calcium * 8.8 mg/dL (7.9-10.9); Carbon Dioxide 23.3 mmol/L (24-32.6); Estimated Creat Clear 34.1; Potassium 4.2 mmol/L (3.4-4.6)
[2019-02-09] MEDS: ALBUTEROL SULFATE 2.5 MG/0.5 ML VIAL.NEB IH SCH ×4 (06:30→18:12)
--- NOTE | 2019-02-09 08:19 | PN ---
Subjective - Date and Time Seen Date: 02/09/19 Time: 08:12 Subjective Narrative: Status quo. Still not eating good. IV out. May stay out . encourage increase oral fluid and food intake. Objective - Review of Systems Misc: All systems neg except as marked - unreliable due to mental status. - Vitals Vitals: Last Vital Signs Temp 36.5 C 02/09/19 07:15 Pulse 87 02/09/19 07:15 Resp 16 02/09/19 04:50 BP 161/55 H 02/09/19 07:15 Pulse Ox 98 02/09/19 07:15 - Abnormal Lab Findings Abnormal Lab Findings: Abnormal Lab Results 02/09/19 02/09/19 Range/Units 05:00 05:00 RBC 3.16 L (4.2-5.4) M/mm3 Hgb 8.6 L (12.5-16.0) gm/dL Hct 28.8 L (37.0-47.0) % MCHC 29.9 L (32-36) g/dl RDW 18.7 H (11.5-14.0) % Lymphocytes % 18.6 L (20-51) % Monocytes % 12.0 H (0.0-9) % Basophils % 1.6 H (0.0-1.0) % Lymphocytes # 0.84 L (1.5-3.5) k/mm3 Carbon Dioxide 23.3 L (24-32.6) mmol/L Anion Gap 13.9 H (6.8-13.8) mmol/L BUN/Creatinine Ratio 6.7 L (9.0-21.6) Random Glucose 115 H (70-110) mg/dL - Exam Constitutional: Present: Alert - AAo x 1, Elderly, Thin and frail ENT Exam: Present: hard of hearing Neck: Present: supple Respiratory: Present: normal breath sounds, No rales, No wheezing Cardiovascular/Chest: Present: regular rate, rhythm, no JVD, no murmur Abdomen: Present: Normal bowel sounds, soft, nontender, nondistended Extremity: Present: no pedal edema, no calf tenderness Assessment/Plan Plan Narrative: continue with present management. Encourage PO intake. may d/c IVF for now. still awaiting NH placement. [facility] working for guardianship. - Problems/Diagnosis (1) Failure to thrive Problem: Acute Narrative: encourage increase PO intake (2) Alzheimer's dementia Problem: Chronic Qualifiers: Alzheimer's disease onset: late-onset Dementia behavioral disturbance: without behavioral disturbance Qualified Code(s): G30.1 - Alzheimer's disease with late onset; F02.80 - Dementia in other diseases classified elsewhere without behavioral disturbance Narrative: continue on Donezepil and Namenda per family request. (3) Frailty syndrome in geriatric patient Problem: Chronic Narrative: on remeron to help increase appetite and for possible depression in dementia (4) Dehydration Problem: Resolved (5) Anemia Problem: Chronic Qualifiers: Anemia type: unspecified type Qualified Code(s): D64.9 - Anemia, unspecified Narrative: stable (6) Self-care deficit for feeding, bathing, and toileting Problem: Acute (7) Unsatisfactory living conditions Problem: Acute (8) Need for protective service Problem: Acute
[2019-02-09] MEDS: DONEPEZIL HCL 5 MG TABLET PO SCH (09:21)
[2019-02-09] MEDS: DOCUSATE SODIUM 100 MG CAPSULE PO SCH (09:22)
[2019-02-09] MEDS: MEMANTINE HCL 10 MG TABLET PO SCH ×2 (09:22→20:19)
[2019-02-09] MEDS: ENOXAPARIN SODIUM 40 MG/0.4 ML SYRG SC SCH (09:23)
[2019-02-09] MEDS: diphenhydrAMINE HCL 25 MG CAPSULE PO SCH (20:18)
[2019-02-09] MEDS: MIRTAZAPINE 15 MG TABLET PO SCH (20:18)
[2019-02-10] MEDS: ALBUTEROL SULFATE 2.5 MG/0.5 ML VIAL.NEB IH SCH ×4 (06:07→18:04)
--- NOTE | 2019-02-10 08:25 | PN ---
Subjective - Date and Time Seen Date: 02/10/19 Time: 08:20 Subjective Narrative: Status quo. Still with PO intake. encourage increase oral fluid and food intake. Objective - Review of Systems Misc: All systems neg except as marked - unreliable due to her mental status - Vitals Vitals: Last Vital Signs Temp 36.6 C 02/10/19 07:31 Pulse 83 02/10/19 07:31 Resp 18 02/10/19 07:31 BP 124/53 02/10/19 07:31 Pulse Ox 96 02/10/19 07:31 - Exam Constitutional: Present: Alert - AAO x 1, Elderly, Thin and frail ENT Exam: Present: hard of hearing Neck: Present: supple Respiratory: Present: normal breath sounds, No rales, No wheezing Cardiovascular/Chest: Present: regular rate, rhythm, no JVD, diastolic murmur Abdomen: Present: Normal bowel sounds, soft, nontender, nondistended Extremity: Present: no pedal edema, no calf tenderness Assessment/Plan Plan Narrative: continue with present management. still awaiting result of [facility] seeking court guardianship. possible placement in [facility]. 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
[2019-02-10] MEDS: DONEPEZIL HCL 5 MG TABLET PO SCH (08:58)
[2019-02-10] MEDS: DOCUSATE SODIUM 100 MG CAPSULE PO SCH (08:59)
[2019-02-10] MEDS: MEMANTINE HCL 10 MG TABLET PO SCH ×2 (08:59→20:19)
[2019-02-10] MEDS: ENOXAPARIN SODIUM 40 MG/0.4 ML SYRG SC SCH (09:00)
[2019-02-10] MEDS: MIRTAZAPINE 15 MG TABLET PO SCH (20:19)
[2019-02-10] MEDS: diphenhydrAMINE HCL 25 MG CAPSULE PO SCH (20:19)
[2019-02-11] MEDS: ALBUTEROL SULFATE 2.5 MG/0.5 ML VIAL.NEB IH SCH ×4 (06:04→18:02)
--- NOTE | 2019-02-11 08:02 | PN ---
Subjective - Date and Time Seen Date: 02/11/19 Time: 07:56 Subjective Narrative: No change. afebrile. Objective - Review of Systems Misc: All systems neg except as marked - ROS is unobtainable due to dementia - Vitals Vitals: Last Vital Signs Temp 36.6 C 02/11/19 06:39 Pulse 82 02/11/19 06:39 Resp 16 02/11/19 06:39 BP 144/61 02/11/19 06:39 Pulse Ox 98 02/11/19 06:39 - Exam Constitutional: Present: Alert, Elderly, Thin and frail - AAO X 1 ENT Exam: Present: hard of hearing Neck: Present: supple Respiratory: Present: normal breath sounds, No rales, No wheezing Cardiovascular/Chest: Present: regular rate, rhythm, no JVD, no murmur Abdomen: Present: Normal bowel sounds, soft, nontender, nondistended Extremity: Present: no pedal edema, no calf tenderness Assessment/Plan Plan Narrative: continue with present management. - Problems/Diagnosis (1) Failure to thrive Problem: Acute (2) Malnutrition Problem: Acute Qualifiers: Malnutrition type: unspecified type Qualified Code(s): E46 - Unspecified protein-calorie malnutrition Narrative: BMI 15.5. 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
[2019-02-11] MEDS: DOCUSATE SODIUM 100 MG CAPSULE PO SCH (08:41)
[2019-02-11] MEDS: DONEPEZIL HCL 5 MG TABLET PO SCH (08:41)
[2019-02-11] MEDS: ENOXAPARIN SODIUM 40 MG/0.4 ML SYRG SC SCH (08:41)
[2019-02-11] MEDS: MEMANTINE HCL 10 MG TABLET PO SCH ×2 (08:41→20:59)
[2019-02-11] MEDS: diphenhydrAMINE HCL 25 MG CAPSULE PO SCH (21:00)
[2019-02-11] MEDS: MIRTAZAPINE 15 MG TABLET PO SCH (21:00)
[2019-02-12] MEDS: ALBUTEROL SULFATE/IPRATROPIUM 3 ML NEBU IH PRN (02:07)
[2019-02-12] MEDS: ALBUTEROL SULFATE 2.5 MG/0.5 ML VIAL.NEB IH SCH ×4 (06:03→18:01)
[2019-02-12] MEDS: MEMANTINE HCL 10 MG TABLET PO SCH ×2 (08:50→20:48)
[2019-02-12] MEDS: ENOXAPARIN SODIUM 40 MG/0.4 ML SYRG SC SCH (08:50)
[2019-02-12] MEDS: DONEPEZIL HCL 5 MG TABLET PO SCH (08:50)
[2019-02-12] MEDS: DOCUSATE SODIUM 100 MG CAPSULE PO SCH (08:50)
--- NOTE | 2019-02-12 10:17 | PN ---
Subjective - Date and Time Seen Date: 02/12/19 Time: 09:56 Subjective Narrative: Patient and nursing report no new concerns this morning. She had some wheezing overnight. Objective - Review of Systems Respiratory: Reports: Wheezing Cardiac: Reports: No Symptoms Reported Abdominal: Denies: Vomiting, Abdominal Pain - Vitals Vitals: Last Vital Signs Temp 36.1 C 02/12/19 07:46 Pulse 83 02/12/19 07:46 Resp 16 02/12/19 07:46 BP 125/44 02/12/19 07:46 Pulse Ox 97 02/12/19 07:46 - Exam Constitutional: Present: Alert, Elderly, Thin and frail Respiratory: Present: normal breath sounds, No wheezing Cardiovascular/Chest: Present: regular rate, rhythm Abdomen: Present: soft, nontender Extremity: Absent: lower extremity edema Assessment/Plan - Problems/Diagnosis (1) Alzheimer's dementia Problem: Chronic Qualifiers: Alzheimer's disease onset: late-onset Dementia behavioral disturbance: without behavioral disturbance Qualified Code(s): G30.1 - Alzheimer's disease with late onset; F02.80 - Dementia in other diseases classified elsewhere without behavioral disturbance Narrative: She has no one to care for her appropriately, and is unable to care for herself. [facility] is involved with obtaining placement after DC, which will not happen on the weekend. She will remain here for at least two additional midnights. Likely medical POA proceedings are being evaluated, but would recommend her code status be addressed. Full code is inappropriate given her multiple life threatening comorbidities. 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 (3) Anemia Problem: Chronic Qualifiers: Anemia type: unspecified type Qualified Code(s): D64.9 - Anemia, unspecified Narrative: No active signs of blood loss. Will check CBC on 02/14. (4) Self-care deficit for feeding, bathing, and toileting Problem: Acute (5) Unsatisfactory living conditions Problem: Acute (6) Need for protective service Problem: Acute (7) Failure to thrive Problem: Acute
[2019-02-12] MEDS: diphenhydrAMINE HCL 25 MG CAPSULE PO SCH (20:48)
[2019-02-12] MEDS: MIRTAZAPINE 15 MG TABLET PO SCH (20:48)
[2019-02-13] MEDS: ALBUTEROL SULFATE 2.5 MG/0.5 ML VIAL.NEB IH SCH ×4 (06:04→18:01)
[2019-02-13] MEDS: MEMANTINE HCL 10 MG TABLET PO SCH ×2 (09:12→20:28)
[2019-02-13] MEDS: ENOXAPARIN SODIUM 40 MG/0.4 ML SYRG SC SCH (09:12)
[2019-02-13] MEDS: DONEPEZIL HCL 5 MG TABLET PO SCH (09:12)
[2019-02-13] MEDS: DOCUSATE SODIUM 100 MG CAPSULE PO SCH (09:12)
--- NOTE | 2019-02-13 11:00 | PN ---
Subjective - Date and Time Seen Date: 02/13/19 Time: 10:45 Subjective Narrative: Patient denies concerns. Is eating and drinking, and ambulating to the bathroom. No changes from yesterday. Objective - Review of Systems Generalized/Overall Review: Reports: No Symptoms Reported - Vitals Vitals: Last Vital Signs Temp 36.6 C 02/13/19 07:23 Pulse 80 02/13/19 10:14 Resp 16 02/13/19 10:14 BP 139/58 02/13/19 07:23 Pulse Ox 96 02/13/19 10:04 - Exam Constitutional: Present: Alert, Cooperative, Elderly, Thin and frail Respiratory: Present: lungs clear Cardiovascular/Chest: Present: regular rate, rhythm Abdomen: Present: soft, nontender Extremity: Absent: lower extremity edema Assessment/Plan - Problems/Diagnosis (1) Alzheimer's dementia Problem: Chronic Qualifiers: Alzheimer's disease onset: late-onset Dementia behavioral disturbance: without behavioral disturbance Qualified Code(s): G30.1 - Alzheimer's disease with late onset; F02.80 - Dementia in other diseases classified elsewhere without behavioral disturbance Narrative: No change from yesterday. She has no one to care for her appropriately at home, and is unable to care for herself. [facility] is involved with obtaining placement after DC, which will not happen on the weekend, but possibly tomorrow. Likely medical POA proceedings are being evaluated, but would recommend her code status be addressed. Full code is inappropriate given her multiple life threatening comorbidities. 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 (4) Self-care deficit for feeding, bathing, and toileting Problem: Acute (5) Unsatisfactory living conditions Problem: Acute (6) Need for protective service Problem: Acute (7) Failure to thrive Problem: Acute
[2019-02-13] MEDS: diphenhydrAMINE HCL 25 MG CAPSULE PO SCH (20:28)
[2019-02-13] MEDS: MIRTAZAPINE 15 MG TABLET PO SCH (20:28)
[2019-02-14 06:35] LABS: Hematocrit 28.1 % (37.0-47.0); Hemoglobin 8.4 gm/dL (12.5-16.0); Mean Cell Volume 91.5 fl (78-100); Mean Corpuscular Hemoglobin 27.4 pg (27-31); Mean Corpuscular Hgb Conc 29.9 g/dl (32-36); Mean Platelet Volume 9.3 fl (8-12.5); Neutrophil # 2.4 K/mm3 (1.3-6.0); Neutrophil % 52.1 % (42-75.0); Platelet Count 326 K/mm3 (150-450); Red Blood Count 3.07 M/mm3 (4.2-5.4); Red Cell Distribution Width 19.5 % (11.5-14.0); White Blood Count 4.6 K/mm3 (4.0-10.5)
[2019-02-14] MEDS: ALBUTEROL SULFATE 2.5 MG/0.5 ML VIAL.NEB IH SCH ×4 (06:49→19:18)
--- NOTE | 2019-02-14 08:24 | PN ---
Subjective - Date and Time Seen Date: 02/14/19 Time: 08:20 Subjective Narrative: Status quo. Patient appetite seems to be coming back. eating her breakfast by herself. Objective - Review of Systems Misc: All systems neg except as marked - unobtainable due to mental status - Vitals Vitals: Last Vital Signs Temp 36.2 C 02/14/19 07:00 Pulse 75 02/14/19 07:00 Resp 20 02/14/19 07:00 BP 129/76 02/14/19 07:00 Pulse Ox 100 02/14/19 07:00 - Abnormal Lab Findings Abnormal Lab Findings: Abnormal Lab Results 02/14/19 Range/Units 06:30 RBC 3.07 L (4.2-5.4) M/mm3 Hgb 8.4 L (12.5-16.0) gm/dL Hct 28.1 L (37.0-47.0) % MCHC 29.9 L (32-36) g/dl RDW 19.5 H (11.5-14.0) % Monocytes % 13.9 H (0.0-9) % Lymphocytes # 1.46 L (1.5-3.5) k/mm3 - Exam Constitutional: Present: Alert - AAO x 1, Elderly, Thin and frail ENT Exam: Present: hard of hearing Neck: Present: supple Respiratory: Present: normal breath sounds, No rales, No wheezing Cardiovascular/Chest: Present: regular rate, rhythm, no JVD, no murmur Abdomen: Present: Normal bowel sounds, soft, nontender, nondistended Extremity: Present: no pedal edema, no calf tenderness Assessment/Plan Plan Narrative: Continue with present management. will talk to family about her code status. will checklabs in a.m. 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
[2019-02-14] MEDS: DONEPEZIL HCL 5 MG TABLET PO SCH (09:32)
[2019-02-14] MEDS: ENOXAPARIN SODIUM 40 MG/0.4 ML SYRG SC SCH (09:32)
[2019-02-14] MEDS: MEMANTINE HCL 10 MG TABLET PO SCH ×2 (09:32→20:13)
[2019-02-14] MEDS: DOCUSATE SODIUM 100 MG CAPSULE PO SCH (09:32)
[2019-02-14] MEDS: diphenhydrAMINE HCL 25 MG CAPSULE PO SCH (20:13)
[2019-02-14] MEDS: MIRTAZAPINE 15 MG TABLET PO SCH (20:13)
[2019-02-15 05:37] LABS: Mean Cell Volume 92.9 fl (78-100); Mean Corpuscular Hemoglobin 27.9 pg (27-31); Mean Platelet Volume 9.2 fl (8-12.5); Neutrophil # 2.8 K/mm3 (1.3-6.0); Neutrophil % 53.2 % (42-75.0); Platelet Count 340 K/mm3 (150-450); Red Blood Count 3.23 M/mm3 (4.2-5.4); Red Cell Distribution Width 19.5 % (11.5-14.0); White Blood Count 5.2 K/mm3 (4.0-10.5)
[2019-02-15] MEDS: ALBUTEROL SULFATE 2.5 MG/0.5 ML VIAL.NEB IH SCH ×4 (06:06→18:15)
[2019-02-15 06:19] LABS: Albumin * 2.5 gm/dl (3.4-5.0); Anion Gap 10.2 mmol/L (6.8-13.8); BUN/Creatinine Ratio 23.9 (9.0-21.6); Bilirubin, Total 0.2 mg/dL (0.0-1.1); Ca. Corrected For Albumin 9.8 mg/dL (8.4-10.2); Calcium * 8.9 mg/dL (7.9-10.9); Carbon Dioxide 26.7 mmol/L (24-32.6); Potassium 3.9 mmol/L (3.4-4.6); Total Protein 6.4 gm/dL (6.2-8.2)
--- NOTE | 2019-02-15 07:20 | PN ---
Subjective - Date and Time Seen Date: 02/15/19 Time: 07:17 Subjective Narrative: Patient laying in bed. She says she has no complaints this morning. Labs are stable. Hb up to 9. Objective - Review of Systems Misc: All systems neg except as marked - unreliable due to mental status. - Vitals Vitals: Last Vital Signs Temp 36.9 C 02/15/19 00:59 Pulse 88 02/15/19 06:11 Resp 16 02/15/19 06:11 BP 115/58 02/15/19 00:15 Pulse Ox 99 02/15/19 06:06 - Abnormal Lab Findings Abnormal Lab Findings: Abnormal Lab Results 02/15/19 02/15/19 Range/Units 05:29 05:29 RBC 3.23 L (4.2-5.4) M/mm3 Hgb 9.0 L (12.5-16.0) gm/dL Hct 30.0 L (37.0-47.0) % MCHC 30.0 L (32-36) g/dl RDW 19.5 H (11.5-14.0) % Monocytes % 12.6 H (0.0-9) % BUN/Creatinine Ratio 23.9 H (9.0-21.6) ALT 15 L (19-67) U/L Albumin 2.5 L (3.4-5.0) gm/dl - Exam Constitutional: Present: Alert - AAO x 1, Cooperative, Elderly, Thin and frail ENT Exam: Present: hearing grossly normal Neck: Present: supple Respiratory: Present: normal breath sounds, No rales, No wheezing Cardiovascular/Chest: Present: regular rate, rhythm, no JVD, no murmur Abdomen: Present: Normal bowel sounds, soft, nontender, nondistended Extremity: Present: no pedal edema, no calf tenderness Assessment/Plan Plan Narrative: Continue with present management. - Problems/Diagnosis (1) Failure to thrive Problem: Acute (2) Severe malnutrition Problem: Acute Narrative: Alb 2.5. BMI 15.5. (3) Alzheimer's dementia Problem: Chronic Qualifiers: Alzheimer's disease onset: late-onset Dementia behavioral disturbance: without behavioral disturbance Qualified Code(s): G30.1 - Alzheimer's disease with late onset; F02.80 - Dementia in other diseases classified elsewhere without behavioral disturbance (4) Frailty syndrome in geriatric patient Problem: Chronic (5) Anemia Problem: Chronic Qualifiers: Anemia type: unspecified type Qualified Code(s): D64.9 - Anemia, unspecified Narrative: will try FeSo4. (6) Self-care deficit for feeding, bathing, and toileting Problem: Acute (7) Unsatisfactory living conditions Problem: Acute (8) Need for protective service Problem: Acute
[2019-02-15] MEDS: DOCUSATE SODIUM 100 MG CAPSULE PO SCH (09:30)
[2019-02-15] MEDS: FERROUS SULFATE 325 MG TABLET PO SCH (09:31)
[2019-02-15] MEDS: DONEPEZIL HCL 5 MG TABLET PO SCH (09:31)
[2019-02-15] MEDS: MEMANTINE HCL 10 MG TABLET PO SCH ×2 (09:31→21:09)
[2019-02-15] MEDS: ENOXAPARIN SODIUM 40 MG/0.4 ML SYRG SC SCH (09:32)
[2019-02-15] MEDS: diphenhydrAMINE HCL 25 MG CAPSULE PO SCH (21:08)
[2019-02-15] MEDS: MIRTAZAPINE 15 MG TABLET PO SCH (21:09)
[2019-02-16] MEDS: ALBUTEROL SULFATE 2.5 MG/0.5 ML VIAL.NEB IH SCH ×4 (06:00→18:11)
--- NOTE | 2019-02-16 08:42 | PN ---
Subjective - Date and Time Seen Date: 02/16/19 Time: 08:39 Subjective Narrative: Patient NAD. Afebrile. Objective - Review of Systems Misc: All systems neg except as marked - unreliable due to mental status - Vitals Vitals: Last Vital Signs Temp 36.3 C 02/16/19 07:05 Pulse 83 02/16/19 07:05 Resp 18 02/16/19 07:05 BP 114/44 02/16/19 07:05 Pulse Ox 96 02/16/19 07:05 - Exam Exam Narrative: AAO x 1 Constitutional: Present: Alert, Elderly, Thin and frail ENT Exam: Present: hearing grossly normal Neck: Present: supple Respiratory: Present: normal breath sounds, No rales, No wheezing Cardiovascular/Chest: Present: regular rate, rhythm, no JVD, no murmur Abdomen: Present: Normal bowel sounds, soft, nontender, nondistended Extremity: Present: no pedal edema, no calf tenderness Assessment/Plan Plan Narrative: Continue with present management. Still awaiting guardianship by [facility]. 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
[2019-02-16] MEDS: FERROUS SULFATE 325 MG TABLET PO SCH (08:53)
[2019-02-16] MEDS: DOCUSATE SODIUM 100 MG CAPSULE PO SCH (08:53)
[2019-02-16] MEDS: ENOXAPARIN SODIUM 40 MG/0.4 ML SYRG SC SCH (08:54)
[2019-02-16] MEDS: MEMANTINE HCL 10 MG TABLET PO SCH ×2 (08:54→20:30)
[2019-02-16] MEDS: DONEPEZIL HCL 5 MG TABLET PO SCH (08:54)
[2019-02-16] MEDS: diphenhydrAMINE HCL 25 MG CAPSULE PO SCH (20:31)
[2019-02-16] MEDS: MIRTAZAPINE 15 MG TABLET PO SCH (20:31)
[2019-02-17] MEDS: ALBUTEROL SULFATE 2.5 MG/0.5 ML VIAL.NEB IH SCH ×4 (06:00→18:51)
--- NOTE | 2019-02-17 08:21 | PN ---
Subjective - Date and Time Seen Date: 02/17/19 Time: 08:15 Subjective Narrative: Patient NAD . Afebrile Ate 25% of her BF and 100% of her lunch per nursing notes. Objective - Review of Systems Misc: All systems neg except as marked - unreliable due to her mental status - Vitals Vitals: Last Vital Signs Temp 37.1 C 02/17/19 03:50 Pulse 78 02/17/19 06:08 Resp 16 02/17/19 06:08 BP 133/49 02/17/19 03:50 Pulse Ox 97 02/17/19 06:00 - Exam Constitutional: Present: Alert - AAo x 1 ENT Exam: Present: hearing grossly normal Neck: Present: supple Respiratory: Present: normal breath sounds, No rales, No wheezing Cardiovascular/Chest: Present: regular rate, rhythm, no JVD, no murmur Abdomen: Present: Normal bowel sounds, soft, nontender, nondistended Extremity: Present: no pedal edema, no calf tenderness Assessment/Plan - Problems/Diagnosis (1) Failure to thrive Problem: Acute Narrative: appetite improving (2) Severe malnutrition Problem: Acute Narrative: due poor PO intake from her dementia. on remeron and protein shakes. (3) Alzheimer's dementia Problem: Chronic Qualifiers: Alzheimer's disease onset: late-onset Dementia behavioral disturbance: without behavioral disturbance Qualified Code(s): G30.1 - Alzheimer's disease with late onset; F02.80 - Dementia in other diseases classified elsewhere without behavioral disturbance Narrative: on Namenda nad donezepil. (4) Frailty syndrome in geriatric patient Problem: Chronic (5) Anemia Problem: Chronic Qualifiers: Anemia type: unspecified type Qualified Code(s): D64.9 - Anemia, unspecified Narrative: multifactorial- nutrition and positive stool for occult blood. (6) Self-care deficit for feeding, bathing, and toileting Problem: Acute (7) Unsatisfactory living conditions Problem: Acute (8) Need for protective service Problem: Acute
[2019-02-17] MEDS: MEMANTINE HCL 10 MG TABLET PO SCH ×2 (09:40→21:18)
[2019-02-17] MEDS: DOCUSATE SODIUM 100 MG CAPSULE PO SCH (09:40)
[2019-02-17] MEDS: PANTOPRAZOLE SODIUM 20 MG TABLET.DR PO SCH (09:40)
[2019-02-17] MEDS: FERROUS SULFATE 325 MG TABLET PO SCH (09:40)
[2019-02-17] MEDS: DONEPEZIL HCL 5 MG TABLET PO SCH (09:40)
[2019-02-17] MEDS: ENOXAPARIN SODIUM 40 MG/0.4 ML SYRG SC SCH (09:41)
[2019-02-17] MEDS: ALBUTEROL SULFATE/IPRATROPIUM 3 ML NEBU IH PRN (10:34)
[2019-02-17] MEDS: MIRTAZAPINE 15 MG TABLET PO SCH (21:18)
[2019-02-17] MEDS: diphenhydrAMINE HCL 25 MG CAPSULE PO SCH (21:19)
[2019-02-18] MEDS: ALBUTEROL SULFATE 2.5 MG/0.5 ML VIAL.NEB IH SCH ×4 (06:07→18:07)
[2019-02-18] MEDS: PANTOPRAZOLE SODIUM 20 MG TABLET.DR PO SCH (07:46)
[2019-02-18] MEDS: DONEPEZIL HCL 5 MG TABLET PO SCH (07:59)
[2019-02-18] MEDS: FERROUS SULFATE 325 MG TABLET PO SCH (07:59)
[2019-02-18] MEDS: MEMANTINE HCL 10 MG TABLET PO SCH ×2 (07:59→21:26)
[2019-02-18] MEDS: DOCUSATE SODIUM 100 MG CAPSULE PO SCH (07:59)
--- NOTE | 2019-02-18 08:10 | PN ---
Subjective - Date and Time Seen Date: 02/18/19 Time: 08:07 Subjective Narrative: Patient NAD. afebrile. confused. answers my questions mostly by "Uhu" Objective - Review of Systems Misc: All systems neg except as marked - unreliable due to mental status - Vitals Vitals: Last Vital Signs Temp 36.3 C 02/18/19 06:00 Pulse 81 02/18/19 06:17 Resp 16 02/18/19 06:17 BP 157/60 H 02/18/19 06:00 Pulse Ox 100 02/18/19 06:07 - Exam Constitutional: Present: Alert - AAo x 1, Elderly, Thin and frail ENT Exam: Present: hearing grossly normal Neck: Present: supple Respiratory: Present: normal breath sounds, No rales, No wheezing Cardiovascular/Chest: Present: regular rate, rhythm, no JVD, no murmur Abdomen: Present: Normal bowel sounds, soft, nontender, nondistended Extremity: Present: no pedal edema, no calf tenderness Assessment/Plan Plan Narrative: Continue with present management. YEIMI is still working on her court guardiqnship. - Problems/Diagnosis (1) Failure to thrive Problem: Acute Narrative: improving appetitie. eating breakfast. consumed about 35-40% of her try so fast. but per nursing consumed 100 % of her BF yesterday. 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
[2019-02-18] MEDS: ENOXAPARIN SODIUM 40 MG/0.4 ML SYRG SC SCH (08:22)
[2019-02-18] MEDS: diphenhydrAMINE HCL 25 MG CAPSULE PO SCH (21:26)
[2019-02-18] MEDS: MIRTAZAPINE 15 MG TABLET PO SCH (21:26)
[2019-02-19] MEDS: ALBUTEROL SULFATE/IPRATROPIUM 3 ML NEBU IH PRN (01:52)
[2019-02-19] MEDS: ALBUTEROL SULFATE 2.5 MG/0.5 ML VIAL.NEB IH SCH ×4 (06:11→18:13)
[2019-02-19] MEDS: FERROUS SULFATE 325 MG TABLET PO SCH (09:43)
[2019-02-19] MEDS: DONEPEZIL HCL 5 MG TABLET PO SCH (09:43)
[2019-02-19] MEDS: ENOXAPARIN SODIUM 40 MG/0.4 ML SYRG SC SCH (09:43)
[2019-02-19] MEDS: DOCUSATE SODIUM 100 MG CAPSULE PO SCH (09:43)
[2019-02-19] MEDS: MEMANTINE HCL 10 MG TABLET PO SCH ×2 (09:43→21:00)
[2019-02-19] MEDS: PANTOPRAZOLE SODIUM 20 MG TABLET.DR PO SCH (09:43)
--- NOTE | 2019-02-19 15:42 | PN ---
Subjective - Date and Time Seen Date: 02/19/19 Time: 10:23 Subjective Narrative: She feels well and has no complaints. She ate 100% of her breakfast. Objective - Review of Systems Generalized/Overall Review: Denies: Fever Respiratory: Denies: Shortness of Breath Cardiac: Denies: Chest Pain Abdominal: Denies: Abdominal Pain Misc: All systems neg except as marked - Vitals Vitals: Last Vital Signs Temp 36.8 C 02/19/19 15:00 Pulse 88 02/19/19 15:00 Resp 18 02/19/19 15:00 BP 103/46 02/19/19 15:00 Pulse Ox 98 02/19/19 15:00 - Exam Constitutional: Present: Alert, Cooperative, Elderly, Thin and frail ENT Exam: Present: hearing grossly normal Neck: Present: supple, trachea midline. Absent: lymphadenopathy (R), lymphadenopathy (L) Respiratory: Present: lungs clear, no accessory muscle use. Absent: crackles, rhonchi, wheezing Cardiovascular/Chest: Present: regular rate, rhythm, no edema, no murmur Abdomen: Present: Normal bowel sounds, soft, nontender Extremity: Present: no pedal edema Skin Exam: Present: normal color, warm/dry Appearance: Present: appropriate appearance Eye contact: Present: cooperative, good eye contact Thoughts: Present: normal mood /affect Assessment/Plan Plan Narrative: 83-year-old female, awaiting guardianship through [facility]. 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 (3) Alzheimer's dementia Problem: Chronic Qualifiers: Alzheimer's disease onset: late-onset Dementia behavioral disturbance: w [facility] behavioral disturbance Qualified Code(s): G30.1 - Alzheimer's disease with late onset; F02.80 - Dementia in other diseases classified elsewhere without behavioral disturbance (4) Self-care deficit for feeding, bathing, and toileting Problem: Acute (5) Unsatisfactory living conditions Problem: Acute (6) Need for protective service Problem: Acute (7) COPD (chronic obstructive pulmonary disease) Problem: Chronic Qualifiers: COPD type: chronic bronchitis
[2019-02-19] MEDS: diphenhydrAMINE HCL 25 MG CAPSULE PO SCH (20:59)
[2019-02-19] MEDS: MIRTAZAPINE 15 MG TABLET PO SCH (21:00)
[2019-02-20] MEDS: ALBUTEROL SULFATE 2.5 MG/0.5 ML VIAL.NEB IH SCH ×4 (06:26→18:19)
[2019-02-20] MEDS: PANTOPRAZOLE SODIUM 20 MG TABLET.DR PO SCH (07:01)
[2019-02-20] MEDS: DONEPEZIL HCL 5 MG TABLET PO SCH (10:30)
[2019-02-20] MEDS: DOCUSATE SODIUM 100 MG CAPSULE PO SCH (10:30)
[2019-02-20] MEDS: ENOXAPARIN SODIUM 40 MG/0.4 ML SYRG SC SCH (10:30)
[2019-02-20] MEDS: FERROUS SULFATE 325 MG TABLET PO SCH (10:30)
[2019-02-20] MEDS: MEMANTINE HCL 10 MG TABLET PO SCH ×2 (10:30→20:32)
--- NOTE | 2019-02-20 12:03 | PN ---
Subjective - Date and Time Seen Date: 02/20/19 Time: 11:30 Subjective Narrative: She is sleepy and denies pain or trouble breathing. Objective - Review of Systems Generalized/Overall Review: Denies: Fever Respiratory: Denies: Shortness of Breath Cardiac: Denies: Chest Pain Abdominal: Denies: Abdominal Pain Misc: All systems neg except as marked - Vitals Vitals: Last Vital Signs Temp 36.4 C 02/20/19 10:25 Pulse 77 02/20/19 10:26 Resp 16 02/20/19 10:26 BP 109/44 02/20/19 10:25 Pulse Ox 96 02/20/19 10:25 - Exam Constitutional: Present: Alert, Oriented x3, Cooperative, Elderly, Thin and frai l ENT Exam: Present: hearing grossly normal Neck: Present: supple, trachea midline Respiratory: Present: lungs clear, normal breath sounds, no respiratory distress, No wheezing. Absent: crackles, rhonchi Cardiovascular/Chest: Present: normal peripheral pulses, regular rate, rhythm, no edema, no murmur Abdomen: Present: Normal bowel sounds, soft, nontender Extremity: Present: no pedal edema Skin Exam: Present: normal color, warm/dry Appearance: Present: appropriate appearance Eye contact: Present: cooperative Assessment/Plan Plan Narrative: 83-year-old female, awaiting guardianship through [facility]. 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 (3) Alzheimer's dementia Problem: Chronic Qualifiers: Alzheimer's disease onset: late-onset Dementia behavioral disturbance: without behavioral disturbance Qualified Code(s): G30.1 - Alzheimer's disease with late onset; F02.80 - Dementia in other diseases classified elsewhere without behavioral disturbance (4) Self-care deficit for feeding, bathing, and toileting Problem: Acute (5) Unsatisfactory living conditions Problem: Acute (6) Need for protective service Problem: Acute (7) COPD (chronic obstructive pulmonary disease) Problem: Chronic Qualifiers: COPD type: chronic bronchitis
[2019-02-20] MEDS: diphenhydrAMINE HCL 25 MG CAPSULE PO SCH (20:32)
[2019-02-20] MEDS: MIRTAZAPINE 15 MG TABLET PO SCH (20:32)
[2019-02-21] MEDS: ALBUTEROL SULFATE 2.5 MG/0.5 ML VIAL.NEB IH SCH ×4 (06:20→18:01)
[2019-02-21] MEDS: PANTOPRAZOLE SODIUM 20 MG TABLET.DR PO SCH (07:29)
[2019-02-21] MEDS: DOCUSATE SODIUM 100 MG CAPSULE PO SCH (08:14)
[2019-02-21] MEDS: FERROUS SULFATE 325 MG TABLET PO SCH (08:14)
[2019-02-21] MEDS: DONEPEZIL HCL 5 MG TABLET PO SCH (08:14)
[2019-02-21] MEDS: MEMANTINE HCL 10 MG TABLET PO SCH ×2 (08:15→20:02)
[2019-02-21] MEDS: ENOXAPARIN SODIUM 40 MG/0.4 ML SYRG SC SCH (08:15)
--- NOTE | 2019-02-21 08:15 | PN ---
Subjective - Date and Time Seen Date: 02/21/19 Time: 08:11 Subjective Narrative: Patient ate 90-95% of her breakfast. AAO x 1. Afebrile. NAD. Objective - Review of Systems Misc: All systems neg except as marked - unobtainable due to her dementia - Vitals Vitals: Last Vital Signs Temp 36.4 C 02/21/19 07:55 Pulse 85 02/21/19 07:55 Resp 20 02/21/19 07:55 BP 141/58 02/21/19 07:55 Pulse Ox 100 02/21/19 07:55 - Exam Constitutional: Present: Alert - AAo x 1, Cooperative, Elderly, Thin and frail ENT Exam: Present: hearing grossly normal Neck: Present: supple Respiratory: Present: normal breath sounds, No rales, No wheezing Cardiovascular/Chest: Present: regular rate, rhythm, no JVD, no murmur Abdomen: Present: Normal bowel sounds, soft, nontender, nondistended Extremity: Present: no pedal edema, no calf tenderness Assessment/Plan Plan Narrative: continue with present management. - Problems/Diagnosis (1) Failure to thrive Problem: Acute Narrative: appetite and PO intake continues to improve. (2) Severe malnutrition Problem: Acute Narrative: appetite and PO intake continues to improve. 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
[2019-02-21] MEDS: diphenhydrAMINE HCL 25 MG CAPSULE PO SCH (20:02)
[2019-02-21] MEDS: MIRTAZAPINE 15 MG TABLET PO SCH (20:03)
[2019-02-21] MEDS: ALBUTEROL SULFATE/IPRATROPIUM 3 ML NEBU IH PRN (20:20)
[2019-02-22 05:30] LABS: Hematocrit 29.7 % (37.0-47.0); Mean Cell Volume 92.5 fl (78-100); Mean Corpuscular Hgb Conc 30.3 g/dl (32-36); Mean Platelet Volume 9.6 fl (8-12.5); Neutrophil # 1.9 K/mm3 (1.3-6.0); Neutrophil % 45.1 % (42-75.0); Platelet Count 305 K/mm3 (150-450); Red Blood Count 3.21 M/mm3 (4.2-5.4); Red Cell Distribution Width 20.8 % (11.5-14.0); White Blood Count 4.3 K/mm3 (4.0-10.5)
[2019-02-22 05:37] LABS: Anion Gap 11.7 mmol/L (6.8-13.8); Calcium * 8.6 mg/dL (7.9-10.9); Carbon Dioxide 26.4 mmol/L (24-32.6); Estimated Creat Clear 29.2; Potassium 4.1 mmol/L (3.4-4.6)
[2019-02-22] MEDS: ALBUTEROL SULFATE 2.5 MG/0.5 ML VIAL.NEB IH SCH ×4 (06:05→18:04)
[2019-02-22] MEDS: PANTOPRAZOLE SODIUM 20 MG TABLET.DR PO SCH (07:02)
--- NOTE | 2019-02-22 08:17 | PN ---
Subjective - Date and Time Seen Date: 02/22/19 Time: 08:11 Subjective Narrative: Patient not in acute distress. Afebrile. Hb is stable. Objective - Review of Systems Misc: All systems neg except as marked - unobtainable due to dementia - Vitals Vitals: Last Vital Signs Temp 36.8 C 02/22/19 06:30 Pulse 105 H 02/22/19 06:30 Resp 12 02/22/19 06:30 BP 124/87 02/22/19 06:30 Pulse Ox 100 02/22/19 06:30 - Abnormal Lab Findings Abnormal Lab Findings: Abnormal Lab Results 02/22/19 02/22/19 Range/Units 05:28 05:28 RBC 3.21 L (4.2-5.4) M/mm3 Hgb 9.0 L (12.5-16.0) gm/dL Hct 29.7 L (37.0-47.0) % MCHC 30.3 L (32-36) g/dl RDW 20.8 H (11.5-14.0) % Monocytes % 16.6 H (0.0-9) % BUN 26 H (3-23) mg/dL Est GFR (Non-Af Amer) 54 L (60-130) mL/min BUN/Creatinine Ratio 25.0 H (9.0-21.6) - Exam Constitutional: Present: Alert - AAO x 1, Elderly, Thin and frail ENT Exam: Present: hearing grossly normal Neck: Present: supple Respiratory: Present: normal breath sounds, No rales, No wheezing Cardiovascular/Chest: Present: regular rate, rhythm, no JVD, no murmur Abdomen: Present: Normal bowel sounds, soft, nontender, nondistended Extremity: Present: no pedal edema, no calf tenderness Assessment/Plan Plan Narrative: continue with present management. - Problems/Diagnosis (1) Failure to thrive Problem: Acute Narrative: eating BF, so far consumed 50 %. 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 (6) Self-care deficit for feeding, bathing, and toileting Problem: Acute (7) Unsatisfactory living conditions Problem: Acute (8) Need for protective service Problem: Acute
[2019-02-22] MEDS: FERROUS SULFATE 325 MG TABLET PO SCH (09:02)
[2019-02-22] MEDS: DONEPEZIL HCL 5 MG TABLET PO SCH (09:02)
[2019-02-22] MEDS: ENOXAPARIN SODIUM 40 MG/0.4 ML SYRG SC SCH (09:02)
[2019-02-22] MEDS: DOCUSATE SODIUM 100 MG CAPSULE PO SCH (09:02)
[2019-02-22] MEDS: MEMANTINE HCL 10 MG TABLET PO SCH ×2 (09:02→20:36)
[2019-02-22] MEDS: diphenhydrAMINE HCL 25 MG CAPSULE PO SCH (20:35)
[2019-02-22] MEDS: MIRTAZAPINE 15 MG TABLET PO SCH (20:35)
[2019-02-23] MEDS: ALBUTEROL SULFATE 2.5 MG/0.5 ML VIAL.NEB IH SCH ×4 (06:02→18:11)
[2019-02-23] MEDS: PANTOPRAZOLE SODIUM 20 MG TABLET.DR PO SCH (07:11)
--- NOTE | 2019-02-23 08:47 | PN ---
Subjective - Date and Time Seen Date: 02/23/19 Time: 08:44 Subjective Narrative: NAD. Afebrile. answers my questions with "Uhum". Objective - Review of Systems Misc: All systems neg except as marked - unreliable due to mental status - Vitals Vitals: Last Vital Signs Temp 36.7 C 02/23/19 06:38 Pulse 84 02/23/19 06:38 Resp 18 02/23/19 06:38 BP 116/90 H 02/23/19 06:38 Pulse Ox 95 02/23/19 06:38 - Exam Constitutional: Present: Alert - AAo x 1, Elderly, Thin and frail ENT Exam: Present: hearing grossly normal Neck: Present: supple Respiratory: Present: normal breath sounds, No rales, No wheezing Cardiovascular/Chest: Present: regular rate, rhythm, no JVD, no murmur Abdomen: Present: Normal bowel sounds, soft, nontender, nondistended Extremity: Present: no pedal edema, no calf tenderness Assessment/Plan Plan Narrative: continue with present management. 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
[2019-02-23] MEDS: DOCUSATE SODIUM 100 MG CAPSULE PO SCH (09:59)
[2019-02-23] MEDS: FERROUS SULFATE 325 MG TABLET PO SCH (09:59)
[2019-02-23] MEDS: MEMANTINE HCL 10 MG TABLET PO SCH ×2 (09:59→23:46)
[2019-02-23] MEDS: DONEPEZIL HCL 5 MG TABLET PO SCH (09:59)
[2019-02-23] MEDS: ENOXAPARIN SODIUM 40 MG/0.4 ML SYRG SC SCH (09:59)
[2019-02-23] MEDS: diphenhydrAMINE HCL 25 MG CAPSULE PO SCH (23:45)
[2019-02-23] MEDS: MIRTAZAPINE 15 MG TABLET PO SCH (23:46)
[2019-02-24] MEDS: ALBUTEROL SULFATE 2.5 MG/0.5 ML VIAL.NEB IH SCH ×4 (06:02→18:03)
[2019-02-24] MEDS: PANTOPRAZOLE SODIUM 20 MG TABLET.DR PO SCH (06:21)
[2019-02-24] MEDS: FERROUS SULFATE 325 MG TABLET PO SCH (08:12)
[2019-02-24] MEDS: DOCUSATE SODIUM 100 MG CAPSULE PO SCH (08:12)
[2019-02-24] MEDS: DONEPEZIL HCL 5 MG TABLET PO SCH (08:12)
[2019-02-24] MEDS: MEMANTINE HCL 10 MG TABLET PO SCH ×2 (08:13→21:23)
[2019-02-24] MEDS: ENOXAPARIN SODIUM 40 MG/0.4 ML SYRG SC SCH (09:19)
--- NOTE | 2019-02-24 12:56 | PN ---
Subjective - Date and Time Seen Date: 02/24/19 Time: 12:54 Subjective Narrative: patient NAD. Consumed 95 % of her lunch. Objective - Review of Systems Misc: All systems neg except as marked - unreliable due to her mental status - Vitals Vitals: Last Vital Signs Temp 36.7 C 02/24/19 10:31 Pulse 70 02/24/19 10:31 Resp 16 02/24/19 10:31 BP 130/60 02/24/19 10:31 Pulse Ox 100 02/24/19 10:31 - Exam Constitutional: Present: Alert - AAO x 1, Elderly, Thin and frail ENT Exam: Present: hearing grossly normal Neck: Present: supple Respiratory: Present: normal breath sounds, No rales, No wheezing Cardiovascular/Chest: Present: regular rate, rhythm, no JVD, no murmur Abdomen: Present: Normal bowel sounds, soft, nontender, nondistended Extremity: Present: no pedal edema, no calf tenderness Assessment/Plan Plan Narrative: continue with present management. - Problems/Diagnosis (1) Failure to thrive Problem: Acute Narrative: appetite continues to improve with remeron. (2) Severe malnutrition Problem: Acute Narrative: is eating more of her meals. 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
[2019-02-24] MEDS: ALBUTEROL SULFATE/IPRATROPIUM 3 ML NEBU IH PRN ×2 (17:26)
[2019-02-24] MEDS: diphenhydrAMINE HCL 25 MG CAPSULE PO SCH (21:23)
[2019-02-24] MEDS: MIRTAZAPINE 15 MG TABLET PO SCH (21:23)
[2019-02-25] MEDS: ALBUTEROL SULFATE/IPRATROPIUM 3 ML NEBU IH PRN (00:47)
[2019-02-25] MEDS: ALBUTEROL SULFATE 2.5 MG/0.5 ML VIAL.NEB IH SCH ×4 (06:00→18:03)
[2019-02-25] MEDS: PANTOPRAZOLE SODIUM 20 MG TABLET.DR PO SCH (08:41)
[2019-02-25] MEDS: MEMANTINE HCL 10 MG TABLET PO SCH (08:41)
[2019-02-25] MEDS: DOCUSATE SODIUM 100 MG CAPSULE PO SCH (08:41)
[2019-02-25] MEDS: DONEPEZIL HCL 5 MG TABLET PO SCH (08:41)
[2019-02-25] MEDS: ENOXAPARIN SODIUM 40 MG/0.4 ML SYRG SC SCH (08:42)
[2019-02-25] MEDS: FERROUS SULFATE 325 MG TABLET PO SCH (08:42)
--- NOTE | 2019-02-25 09:01 | PN ---
Subjective - Date and Time Seen Date: 02/25/19 Time: 08:52 Subjective Narrative: patient had a fall yesterday and hit her head and left shoulder. . Head CTS - no acute IC process finding, small left frontal scalp hematoma. shoulder Xray shows AC joint arthritis, rotator cuff pathology, no acute fracture or dislocation. Objective - Review of Systems Misc: All systems neg except as marked - unreliable due to mental status - Vitals Vitals: Last Vital Signs Temp 36.8 C 02/25/19 06:23 Pulse 84 02/25/19 06:23 Resp 12 02/25/19 06:23 BP 104/44 02/25/19 06:23 Pulse Ox 96 02/25/19 06:23 - Exam Constitutional: Present: Alert - AAO x 1, Elderly, Thin and frail ENT Exam: Present: hearing grossly normal Neck: Present: supple Respiratory: Present: normal breath sounds, No rales, No wheezing Cardiovascular/Chest: Present: regular rate, rhythm, no JVD, no murmur Abdomen: Present: Normal bowel sounds, soft, nontender, nondistended Extremity: Present: no pedal edema, no calf tenderness Skin Exam: Present: other - scalp hematoma, left Assessment/Plan - Problems/Diagnosis (1) Scalp hematoma Problem: Acute Qualifiers: Encounter type: initial encounter Qualified Code(s): S00.03XA - Contusion of scalp, initial encounter (2) Fall Problem: Acute Qualifiers: Encounter type: initial encounter Qualified Code(s): W19.XXXA - Unspecified fall, initial encounter Narrative: fall precautions (3) Failure to thrive Problem: Acute (4) Severe malnutrition Problem: Acute (5) Alzheimer's dementia Problem: Chronic Qualifiers: Alzheimer's disease onset: late-onset Dementia behavioral disturbance: without behavioral disturbance Qualified Code(s): G30.1 - Alzheimer's disease with late onset; F02.80 - Dementia in other diseases classified elsewhere without behavioral disturbance (6) Frailty syndrome in geriatric patient Problem: Chronic (7) Anemia Problem: Chronic Qualifiers: Anemia type: unspecified type Qualified Code(s): D64.9 - Anemia, unspecified (8) Self-care deficit for feeding, bathing, and toileting Problem: Acute (9) Unsatisfactory living conditions Problem: Acute (10) Need for protective service Problem: Acute
[2019-02-25] MEDS: ACETAMINOPHEN 500 MG TABLET PO PRN (17:34)
[2019-02-26] MEDS: MIRTAZAPINE 15 MG TABLET PO SCH ×2 (00:16→20:38)
[2019-02-26] MEDS: MEMANTINE HCL 10 MG TABLET PO SCH ×3 (00:16→20:38)
[2019-02-26] MEDS: diphenhydrAMINE HCL 25 MG CAPSULE PO SCH ×2 (00:16→20:37)
[2019-02-26] MEDS: ALBUTEROL SULFATE/IPRATROPIUM 3 ML NEBU IH PRN ×3 (03:45→21:11)
[2019-02-26] MEDS: ALBUTEROL SULFATE 2.5 MG/0.5 ML VIAL.NEB IH SCH ×4 (05:58→18:09)
--- NOTE | 2019-02-26 09:22 | PN ---
Subjective - Date and Time Seen Date: 02/26/19 Time: 09:16 Subjective Narrative: Wlaked with PT abd was limping. admits to have pain of her left hip. resent fall. Objective - Review of Systems Misc: All systems neg except as marked - unobtainable due to mental status - Vitals Vitals: Last Vital Signs Temp 36.3 C 02/26/19 07:48 Pulse 87 02/26/19 07:48 Resp 20 02/26/19 07:48 BP 139/63 02/26/19 07:48 Pulse Ox 95 02/26/19 07:48 - Exam Constitutional: Present: Alert - AAo x1 ENT Exam: Present: hearing grossly normal Neck: Present: supple Respiratory: Present: normal breath sounds, No rales, No wheezing Cardiovascular/Chest: Present: regular rate, rhythm, no JVD, no murmur Abdomen: Present: Normal bowel sounds, soft, nontender, nondistended Extremity: Present: no pedal edema, no calf tenderness Skin Exam: Present: other - positive black eye/hematoma left quaker Assessment/Plan - Problems/Diagnosis (1) Hip pain, left Problem: Acute Narrative: will get xray of her left hip and pelvis. (2) Scalp hematoma Problem: Acute Qualifiers: Encounter type: initial encounter Qualified Code(s): S00.03XA - Contusion of scalp, initial encounter (3) Fall Problem: Acute Qualifiers: Encounter type: initial encounter Qualified Code(s): W19.XXXA - Unspecified fall, initial encounter (4) Failure to thrive Problem: Acute (5) Severe malnutrition Problem: Acute (6) Alzheimer's dementia Problem: Chronic Qualifiers: Alzheimer's disease onset: late-onset Dementia behavioral disturbance: without behavioral disturbance Qualified Code(s): G30.1 - Alzheimer's disease with late onset; F02.80 - Dementia in other diseases classified elsewhere without behavioral disturbance (7) 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
[2019-02-26] MEDS: PANTOPRAZOLE SODIUM 20 MG TABLET.DR PO SCH (09:24)
[2019-02-26] MEDS: FERROUS SULFATE 325 MG TABLET PO SCH (09:25)
[2019-02-26] MEDS: DONEPEZIL HCL 5 MG TABLET PO SCH (09:25)
[2019-02-26] MEDS: DOCUSATE SODIUM 100 MG CAPSULE PO SCH (09:25)
[2019-02-26] MEDS: ENOXAPARIN SODIUM 40 MG/0.4 ML SYRG SC SCH (09:25)
[2019-02-26] MEDS: ACETAMINOPHEN 500 MG TABLET PO PRN (09:26)
[2019-02-27] MEDS: ALBUTEROL SULFATE 2.5 MG/0.5 ML VIAL.NEB IH SCH ×4 (06:01→18:04)
[2019-02-27] MEDS: PANTOPRAZOLE SODIUM 20 MG TABLET.DR PO SCH (06:21)
[2019-02-27] MEDS: ACETAMINOPHEN 500 MG TABLET PO PRN ×2 (08:20→20:26)
[2019-02-27] MEDS: DONEPEZIL HCL 5 MG TABLET PO SCH (08:21)
[2019-02-27] MEDS: DOCUSATE SODIUM 100 MG CAPSULE PO SCH (08:21)
[2019-02-27] MEDS: ENOXAPARIN SODIUM 40 MG/0.4 ML SYRG SC SCH (08:21)
[2019-02-27] MEDS: FERROUS SULFATE 325 MG TABLET PO SCH (08:21)
[2019-02-27] MEDS: MEMANTINE HCL 10 MG TABLET PO SCH ×2 (08:21→20:21)
--- NOTE | 2019-02-27 08:33 | PN ---
Subjective - Date and Time Seen Date: 02/27/19 Time: 08:25 Subjective Narrative: HIP/Pelvic xray showed no acute osseous findings except for narrowing of joint with spurring. Rib sereies -equivocal 7th rib discontinuity. Objective - Review of Systems Misc: All systems neg except as marked - unreliable due to mental status - Vitals Vitals: Last Vital Signs Temp 37.0 C 02/27/19 07:21 Pulse 87 02/27/19 07:21 Resp 16 02/27/19 07:21 BP 116/58 02/27/19 07:21 Pulse Ox 96 02/27/19 07:21 - Exam Constitutional: Present: Alert - AAo x 1 ENT Exam: Present: hearing grossly normal Neck: Present: supple Respiratory: Present: normal breath sounds, No rales, No wheezing Cardiovascular/Chest: Present: regular rate, rhythm, no JVD, no murmur Abdomen: Present: Normal bowel sounds, soft, nontender, nondistended Extremity: Present: no pedal edema, no calf tenderness Skin Exam: Present: other - hematoma- left gnosticist, left black eye Assessment/Plan Plan Narrative: continue with present management. still awaiting [facility] progress on court guardianship. - Problems/Diagnosis (1) Hip pain, left Problem: Acute (2) Scalp hematoma Problem: Acute Qualifiers: Encounter type: initial encounter Qualified Code(s): S00.03XA - Contusion of scalp, initial encounter (3) Rib pain on left side Problem: Acute Narrative: questionable discontinuity on left 7th rib- bruised or rib fracture-management will be same- continue with pain control PRN, apply warm/or cold compress (4) Fall Problem: Acute Qualifiers: Encounter type: initial encounter Qualified Code(s): W19.XXXA - Unspecified fall, initial encounter (5) Failure to thrive Problem: Acute (6) Severe malnutrition Problem: Acute (7) Alzheimer's dementia Problem: Chronic Qualifiers: Alzheimer's disease onset: late-onset Dementia behavioral disturbance: without behavioral disturbance Qualified Code(s): G30.1 - Alzheimer's disease with late onset; F02.80 - Dementia in other diseases classified elsewhere wit hout behavioral disturbance (8) 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
[2019-02-27] MEDS: MIRTAZAPINE 15 MG TABLET PO SCH (20:21)
[2019-02-27] MEDS: diphenhydrAMINE HCL 25 MG CAPSULE PO SCH (20:22)
[2019-02-27] MEDS: ALBUTEROL SULFATE/IPRATROPIUM 3 ML NEBU IH PRN (20:57)
[2019-02-28] MEDS: ALBUTEROL SULFATE 2.5 MG/0.5 ML VIAL.NEB IH SCH ×4 (06:02→18:06)
[2019-02-28] MEDS: PANTOPRAZOLE SODIUM 20 MG TABLET.DR PO SCH (07:00)
[2019-02-28] MEDS: MEMANTINE HCL 10 MG TABLET PO SCH ×2 (08:31→20:12)
[2019-02-28] MEDS: ENOXAPARIN SODIUM 40 MG/0.4 ML SYRG SC SCH (08:31)
[2019-02-28] MEDS: DOCUSATE SODIUM 100 MG CAPSULE PO SCH (08:31)
[2019-02-28] MEDS: FERROUS SULFATE 325 MG TABLET PO SCH (08:31)
[2019-02-28] MEDS: DONEPEZIL HCL 5 MG TABLET PO SCH (08:31)
--- NOTE | 2019-02-28 08:46 | PN ---
Sunitha Note - Interim Date: 02/28/19 Time: 08:43 Narrative: 02/28/19 08:43 Patient afebrile. Drinking ensure. She sasy her head is not hurting her anymore. Still waiting for [facility] .
[2019-02-28] MEDS ORDERED: Regadenoson 0.08 MG/ML SYRG IV ONE (12:00)
[2019-02-28] MEDS ORDERED: Regadenoson 0.1 MG UNIT IV ONE (12:00)
[2019-02-28] MEDS: ALBUTEROL SULFATE/IPRATROPIUM 3 ML NEBU IH PRN (13:40)
--- NOTE | 2019-02-28 16:00 | PN ---
Subjective - Date and Time Seen Date: 02/28/19 Time: 15:56 Subjective Narrative: patient is status quo. says her head not longer hurts. Objective - Review of Systems Misc: All systems neg except as marked - unreliable due to dementia - Vitals Vitals: Last Vital Signs Temp 36.8 C 02/28/19 15:08 Pulse 87 02/28/19 15:08 Resp 18 02/28/19 15:08 BP 119/40 02/28/19 15:08 Pulse Ox 96 02/28/19 15:08 - Exam Constitutional: Present: Alert - AAo x 1, Elderly, Thin and frail ENT Exam: Present: hearing grossly normal Neck: Present: supple Respiratory: Present: lungs clear, No rales, No wheezing Cardiovascular/Chest: Present: regular rate, rhythm, no JVD, no murmur Abdomen: Present: Normal bowel sounds, nontender, nondistended Extremity: Present: no pedal edema, no calf tenderness Assessment/Plan Plan Narrative: continue with present management. awaiting DHS progress with acquiring court guardianship f0r NH placement. will check labs in the morning. - Problems/Diagnosis (1) Hip pain, left Problem: Acute (2) Scalp hematoma Problem: Acute Qualifiers: Encounter type: initial encounter Qualified Code(s): S00.03XA - Contusion of scalp, initial encounter (3) Rib pain on left side Problem: Acute (4) Fall Problem: Acute Qualifiers: Encounter type: initial encounter Qualified Code(s): W19.XXXA - Unspecified fall, initial encounter (5) Failure to thrive Problem: Acute (6) Severe malnutrition Problem: Acute (7) Alzheimer's dementia Problem: Chronic Qualifiers: Alzheimer's disease onset: late-onset Dementia behavioral disturbance: without behavioral disturbance Qualified Code(s): G30.1 - Alzheimer's disease with late onset; F02.80 - Dementia in other diseases classified elsewhere without behavioral disturbance (8) 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
[2019-02-28] MEDS: diphenhydrAMINE HCL 25 MG CAPSULE PO SCH (20:12)
[2019-02-28] MEDS: MIRTAZAPINE 15 MG TABLET PO SCH (20:12)
[2019-03-01 05:23] LABS: Hematocrit 31.1 % (37.0-47.0); Hemoglobin 9.5 gm/dL (12.5-16.0); Mean Cell Volume 95.1 fl (78-100); Mean Corpuscular Hemoglobin 29.1 pg (27-31); Mean Corpuscular Hgb Conc 30.5 g/dl (32-36); Mean Platelet Volume 9.5 fl (8-12.5); Neutrophil # 3.1 K/mm3 (1.3-6.0); Neutrophil % 52.9 % (42-75.0); Platelet Count 349 K/mm3 (150-450); Red Blood Count 3.27 M/mm3 (4.2-5.4); Red Cell Distribution Width 20.6 % (11.5-14.0); White Blood Count 5.9 K/mm3 (4.0-10.5)
[2019-03-01 05:38] LABS: Anion Gap 11.7 mmol/L (6.8-13.8); Calcium * 8.9 mg/dL (7.9-10.9); Carbon Dioxide 26.4 mmol/L (24-32.6); Estimated Creat Clear 29.2; Potassium 4.1 mmol/L (3.4-4.6)
[2019-03-01] MEDS: ALBUTEROL SULFATE 2.5 MG/0.5 ML VIAL.NEB IH SCH ×4 (06:00→18:12)
[2019-03-01] MEDS: MEMANTINE HCL 10 MG TABLET PO SCH ×2 (08:20→20:52)
[2019-03-01] MEDS: DOCUSATE SODIUM 100 MG CAPSULE PO SCH (08:20)
[2019-03-01] MEDS: DONEPEZIL HCL 5 MG TABLET PO SCH (08:20)
[2019-03-01] MEDS: ENOXAPARIN SODIUM 40 MG/0.4 ML SYRG SC SCH (08:20)
[2019-03-01] MEDS: FERROUS SULFATE 325 MG TABLET PO SCH (08:20)
[2019-03-01] MEDS: PANTOPRAZOLE SODIUM 20 MG TABLET.DR PO SCH (08:20)
--- NOTE | 2019-03-01 09:33 | PN ---
Subjective - Date and Time Seen Date: 03/01/19 Time: 07:45 Subjective Narrative: Neela Flores is a 83-year-old female that I am seeing for Dr. Santiago today in his absence. There have been no changes through the night and she continues to be status quo. Still awaiting guardianship to be established so that she can go to a halfway. Objective - Review of Systems Generalized/Overall Review: Reports: No Symptoms Reported EENTM: Reports: No Symptoms Reported Respiratory: Reports: No Symptoms Reported Cardiac: Reports: No Symptoms Reported Abdominal: Reports: No Symptoms Reported Genitourinary Symptoms: Reports: No Symptoms Reported Musculoskeletal Complaints: Reports: No Symptoms Reported Neurological: Reports: No Symptoms Reported Skin: Reports: No Symptoms Reported Endocrine: Reports: No Symptoms Reported Misc: All systems neg except as marked - Vitals Vitals: Last Vital Signs Temp 36.6 C 03/01/19 08:43 Pulse 81 03/01/19 08:43 Resp 16 03/01/19 08:43 BP 147/61 03/01/19 08:43 Pulse Ox 95 03/01/19 08:43 - Abnormal Lab Findings Abnormal Lab Findings: Abnormal Lab Results 03/01/19 03/01/19 Range/Units 05:10 05:10 RBC 3.27 L (4.2-5.4) M/mm3 Hgb 9.5 L (12.5-16.0) gm/dL Hct 31.1 L (37.0-47.0) % MCHC 30.5 L (32-36) g/dl RDW 20.6 H (11.5-14.0) % Monocytes % 14.2 H (0.0-9) % Basophils % 1.4 H (0.0-1.0) % Chloride 108 H (97-106) mmol/L BUN 27 H (3-23) mg/dL Est GFR (Non-Af Amer) 54 L (60-130) mL/min BUN/Creatinine Ratio 26.0 H (9.0-21.6) - Exam Constitutional: Present: Alert, Well nourished, Elderly, Thin and frail. Absent: Oriented x3 ENT Exam: Present: normal ENT inspection Neck: Present: non-tender, full range of motion, supple, normal inspection Breasts: Present: Exam deferred Respiratory: Present: lungs clear Cardiovascular/Chest: Present: normal peripheral pulses, regular rate, rhythm Abdomen: Present: Normal bowel sounds, soft, nontender /Rectal: Present: Exam deferred Extremity: Present: normal range of motion, no pedal edema Skin Exam: Present: normal color, warm/dry Lymphatic: Present: no adenopathy Neurologic: Present: top carrier II-XII nml as tested Appearance: Present: appropriate appearance Eye contact: Present: cooperative Thoughts: Present: normal thought pattern Assessment/Plan Plan Narrative: Continue to establish care. - Problems/Diagnosis (1) Alzheimer's dementia Problem: Chronic Qualifiers: Alzheimer's disease onset: late-onset Dementia behavioral disturbance: without behavioral disturbance Qualified Code(s): G30.1 - Alzheimer's disease with late onset; F02.80 - Dementia in other diseases classified elsewhere without behavioral disturbance (2) Mental status, decreased Problem: Chronic (3) Frailty syndrome in geriatric patient Problem: Chronic (4) Decreased oral intake Problem: Chronic (5) Anorexia Problem: Chronic
[2019-03-01] MEDS: diphenhydrAMINE HCL 25 MG CAPSULE PO SCH (20:51)
[2019-03-01] MEDS: MIRTAZAPINE 15 MG TABLET PO SCH (20:52)
[2019-03-02] MEDS: ALBUTEROL SULFATE/IPRATROPIUM 3 ML NEBU IH PRN (00:40)
[2019-03-02] MEDS: ALBUTEROL SULFATE 2.5 MG/0.5 ML VIAL.NEB IH SCH ×4 (06:02→18:05)
[2019-03-02] MEDS: PANTOPRAZOLE SODIUM 20 MG TABLET.DR PO SCH (07:04)
--- NOTE | 2019-03-02 08:41 | PN ---
Subjective - Date and Time Seen Date: 03/02/19 Time: 08:35 Subjective Narrative: Patient in bed. No change. Afebrile. Objective - Review of Systems Misc: All systems neg except as marked - Unreliable due to patient's mental status - Vitals Vitals: Last Vital Signs Temp 36.7 C 03/02/19 07:13 Pulse 77 03/02/19 07:13 Resp 19 03/02/19 07:13 BP 115/40 03/02/19 07:13 Pulse Ox 95 03/02/19 07:13 - Exam Constitutional: Present: Alert - AAo x 1, Elderly, Thin and frail ENT Exam: Present: hearing grossly normal Neck: Present: supple Respiratory: Present: normal breath sounds, No rales, No wheezing Cardiovascular/Chest: Present: regular rate, rhythm, no JVD Abdomen: Present: Normal bowel sounds, soft, nontender, nondistended Extremity: Present: no pedal edema, no calf tenderness Assessment/Plan Plan Narrative: Continue with present management. Still waiting for [facility] court guardianship for NH placment. - Problems/Diagnosis (1) Scalp hematoma Problem: Acute Qualifiers: Encounter type: initial encounter Qualified Code(s): S00.03XA - Contusion of scalp, initial encounter (2) Rib pain on left side Problem: Acute Narrative: questionable left 7th rib discontinuity (3) Failure to thrive Problem: Acute (4) Severe malnutrition Problem: Acute (5) Alzheimer's dementia Problem: Chronic Qualifiers: Alzheimer's disease onset: late-onset Dementia behavioral disturbance: without behavioral disturbance Qualified Code(s): G30.1 - Alzheimer's disease with late onset; F02.80 - Dementia in other diseases classified elsewhere without behavioral disturbance (6) 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
[2019-03-02] MEDS: DOCUSATE SODIUM 100 MG CAPSULE PO SCH (09:11)
[2019-03-02] MEDS: FERROUS SULFATE 325 MG TABLET PO SCH (09:11)
[2019-03-02] MEDS: DONEPEZIL HCL 5 MG TABLET PO SCH (09:11)
[2019-03-02] MEDS: ENOXAPARIN SODIUM 40 MG/0.4 ML SYRG SC SCH (09:12)
[2019-03-02] MEDS: MEMANTINE HCL 10 MG TABLET PO SCH ×2 (09:12→20:22)
[2019-03-02] MEDS: diphenhydrAMINE HCL 25 MG CAPSULE PO SCH (20:22)
[2019-03-02] MEDS: MIRTAZAPINE 15 MG TABLET PO SCH (20:23)
[2019-03-03] MEDS: ALBUTEROL SULFATE 2.5 MG/0.5 ML VIAL.NEB IH SCH ×4 (06:02→18:10)
[2019-03-03] MEDS: PANTOPRAZOLE SODIUM 20 MG TABLET.DR PO SCH (06:54)
--- NOTE | 2019-03-03 08:34 | PN ---
Subjective - Date and Time Seen Date: 03/03/19 Time: 08:29 Subjective Narrative: Patient sitting on her recliner. Says she ate all of her BF and her tummy is full. Objective - Review of Systems Misc: All systems neg except as marked - unreliable due to mental status- asked if she knew where she was - she said "Yup. I know I am here and I konow my tummy is full." - Vitals Vitals: Last Vital Signs Temp 36.5 C 03/03/19 07:00 Pulse 86 03/03/19 07:00 Resp 16 03/03/19 07:00 BP 145/57 03/03/19 07:00 Pulse Ox 97 03/03/19 07:00 - Exam Constitutional: Present: Alert - AAO x 1, Elderly, Thin and frail ENT Exam: Present: hearing grossly normal Neck: Present: supple Respiratory: Present: normal breath sounds, No rales, No wheezing Cardiovascular/Chest: Present: regular rate, rhythm, no JVD, no murmur Abdomen: Present: Normal bowel sounds, soft, nontender, nondistended Extremity: Present: no pedal edema, no calf tenderness Assessment/Plan Plan Narrative: Status quo. continue with present management. - Problems/Diagnosis (1) Scalp hematoma Problem: Acute Qualifiers: Encounter type: initial encounter Qualified Code(s): S00.03XA - Contusion of scalp, initial encounter (2) Rib pain on left side Problem: Acute (3) Failure to thrive Problem: Acute (4) Severe malnutrition Problem: Acute (5) Alzheimer's dementia Problem: Chronic Qualifiers: Alzheimer's disease onset: late-onset Dementia behavioral disturbance: without behavioral disturbance Qualified Code(s): G30.1 - Alzheimer's disease with late onset; F02.80 - Dementia in other diseases classified elsewhere without behavioral disturbance (6) 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
[2019-03-03] MEDS: MEMANTINE HCL 10 MG TABLET PO SCH ×2 (09:45→21:02)
[2019-03-03] MEDS: FERROUS SULFATE 325 MG TABLET PO SCH (09:45)
[2019-03-03] MEDS: DONEPEZIL HCL 5 MG TABLET PO SCH (09:45)
[2019-03-03] MEDS: ENOXAPARIN SODIUM 40 MG/0.4 ML SYRG SC SCH (09:46)
[2019-03-03] MEDS: DOCUSATE SODIUM 100 MG CAPSULE PO SCH (09:46)
[2019-03-03] MEDS: ALBUTEROL SULFATE/IPRATROPIUM 3 ML NEBU IH PRN (09:48)
[2019-03-03] MEDS: diphenhydrAMINE HCL 25 MG CAPSULE PO SCH (21:02)
[2019-03-03] MEDS: MIRTAZAPINE 15 MG TABLET PO SCH (21:02)
[2019-03-04] MEDS: ALBUTEROL SULFATE 2.5 MG/0.5 ML VIAL.NEB IH SCH ×4 (06:03→18:09)
[2019-03-04] MEDS: MEMANTINE HCL 10 MG TABLET PO SCH ×2 (08:02→21:40)
[2019-03-04] MEDS: DONEPEZIL HCL 5 MG TABLET PO SCH (08:02)
[2019-03-04] MEDS: PANTOPRAZOLE SODIUM 20 MG TABLET.DR PO SCH (08:02)
[2019-03-04] MEDS: DOCUSATE SODIUM 100 MG CAPSULE PO SCH (08:02)
[2019-03-04] MEDS: FERROUS SULFATE 325 MG TABLET PO SCH (08:02)
--- NOTE | 2019-03-04 08:04 | PN ---
Subjective - Date and Time Seen Date: 03/04/19 Time: 07:59 Subjective Narrative: Patient NAD. Afebrile. Objective - Review of Systems Misc: All systems neg except as marked - unreliable due to mental status - Vitals Vitals: Last Vital Signs Temp 36.3 C 03/04/19 02:00 Pulse 75 03/04/19 06:13 Resp 16 03/04/19 06:13 BP 117/48 03/04/19 02:00 Pulse Ox 94 03/04/19 06:03 - Exam Constitutional: Present: Alert - AAo x 1, Elderly, Thin and frail ENT Exam: Present: hearing grossly normal Neck: Present: supple Respiratory: Present: decreased breath sounds, No rales, No wheezing Cardiovascular/Chest: Present: regular rate, rhythm, no JVD, no murmur Abdomen: Present: Normal bowel sounds, soft, nontender, nondistended Extremity: Present: no pedal edema, no calf tenderness Assessment/Plan Plan Narrative: No changes. Continue with current management and will restart all of her medications. - Problems/Diagnosis (1) Scalp hematoma Problem: Acute Qualifiers: Encounter type: initial encounter Qualified Code(s): S00.03XA - Contusion of scalp, initial encounter Narrative: resolving (2) Rib pain on left side Problem: Resolved (3) Failure to thrive Problem: Acute Narrative: appetite erickson improved (4) Severe malnutrition Problem: Acute Narrative: weight is up to 38.9 Kg (5) Alzheimer's dementia Problem: Chronic Qualifiers: Alzheimer's disease onset: late-onset Dementia behavioral disturbance: without behavioral disturbance Qualified Code(s): G30.1 - Alzheimer's disease with late onset; F02.80 - Dementia in other diseases classified elsewhere without behavioral disturbance Narrative: on Donezepil and Aricept (6) Frailty syndrome in geriatric patient Problem: Chronic (7) Anemia Problem: Chronic Qualifiers: Anemia type: unspecified type Qualified Code(s): D64.9 - Anemia, unspecified Narrative: Hb up to 9.5 . on feSo4. (8) Need for protective service Problem: Acute (9) Osteoarthritis Problem: Chronic Qualifiers: Osteoarthritis location: hip
[2019-03-04] MEDS: ENOXAPARIN SODIUM 40 MG/0.4 ML SYRG SC SCH (09:03)
[2019-03-04] MEDS: ALBUTEROL SULFATE/IPRATROPIUM 3 ML NEBU IH PRN (10:10)
[2019-03-04] MEDS: diphenhydrAMINE HCL 25 MG CAPSULE PO SCH (21:40)
[2019-03-04] MEDS: MIRTAZAPINE 15 MG TABLET PO SCH (21:40)
[2019-03-05] MEDS: ALBUTEROL SULFATE 2.5 MG/0.5 ML VIAL.NEB IH SCH ×4 (06:02→18:00)
[2019-03-05] MEDS: MEMANTINE HCL 10 MG TABLET PO SCH ×2 (08:55→21:27)
[2019-03-05] MEDS: PANTOPRAZOLE SODIUM 20 MG TABLET.DR PO SCH (08:56)
[2019-03-05] MEDS: DONEPEZIL HCL 5 MG TABLET PO SCH (08:56)
[2019-03-05] MEDS: DOCUSATE SODIUM 100 MG CAPSULE PO SCH (08:56)
[2019-03-05] MEDS: FERROUS SULFATE 325 MG TABLET PO SCH (08:56)
[2019-03-05] MEDS: ENOXAPARIN SODIUM 40 MG/0.4 ML SYRG SC SCH (08:56)
--- NOTE | 2019-03-05 11:04 | PN ---
Subjective - Date and Time Seen Date: 03/05/19 Time: 10:57 Subjective Narrative: No new concerns. Court date next week. Objective - Review of Systems Misc: All systems neg except as marked - No concerns per nursing. Pt unable to give ROS secondary to dementia - Vitals Vitals: Last Vital Signs Temp 36.6 C 03/05/19 10:10 Pulse 78 03/05/19 10:13 Resp 16 03/05/19 10:13 BP 122/47 03/05/19 10:10 Pulse Ox 96 03/05/19 10:10 - Exam Constitutional: Present: Alert, Elderly, Thin and frail Respiratory: Present: no respiratory distress Cardiovascular/Chest: Present: regular rate, rhythm Skin Exam: Present: other - Left frontal bruising and abrasion Assessment/Plan - Problems/Diagnosis (1) Alzheimer's dementia Problem: Chronic Qualifiers: Alzheimer's disease onset: late-onset Dementia behavioral disturbance: without behavioral disturbance Qualified Code(s): G30.1 - Alzheimer's disease with late onset; F02.80 - Dementia in other diseases classified elsewhere without behavioral disturbance Narrative: Patient will have a court date this week to determine guardianship. Pending that outcome, she will be placed in a facility, potentially [place]. (2) Frailty syndrome in geriatric patient Problem: Chronic (3) Anemia Problem: Chronic Qualifiers: Anemia type: unspecified type Qualified Code(s): D64.9 - Anemia, unspecified Narrative: She has been gaining weight, and her hemoglobin is improving. 9.5 at last check. (4) Self-care deficit for feeding, bathing, and toileting Problem: Chronic (5) Unsatisfactory living conditions Problem: Chronic (6) Need for protective service Problem: Chronic (7) Failure to thrive Problem: Chronic
[2019-03-05] MEDS: diphenhydrAMINE HCL 25 MG CAPSULE PO SCH (21:27)
[2019-03-05] MEDS: MIRTAZAPINE 15 MG TABLET PO SCH (21:27)
[2019-03-05] MEDS: ALBUTEROL SULFATE/IPRATROPIUM 3 ML NEBU IH PRN (22:09)
[2019-03-06] MEDS: ALBUTEROL SULFATE 2.5 MG/0.5 ML VIAL.NEB IH SCH ×4 (06:01→18:06)
[2019-03-06] MEDS: PANTOPRAZOLE SODIUM 20 MG TABLET.DR PO SCH (09:51)
[2019-03-06] MEDS: MEMANTINE HCL 10 MG TABLET PO SCH ×2 (09:51→20:40)
[2019-03-06] MEDS: FERROUS SULFATE 325 MG TABLET PO SCH (09:51)
[2019-03-06] MEDS: DOCUSATE SODIUM 100 MG CAPSULE PO SCH (09:51)
[2019-03-06] MEDS: DONEPEZIL HCL 5 MG TABLET PO SCH (09:52)
--- NOTE | 2019-03-06 10:01 | PN ---
Subjective - Date and Time Seen Date: 03/06/19 Time: 09:57 Subjective Narrative: Patient's orders for breathing treatments had last night, and she was having some wheezing, so this breathing treatment order was resumed. No new concerns this morning. She reports feeling comfortable. Objective - Review of Systems Respiratory: Reports: Wheezing Cardiac: Reports: No Symptoms Reported Abdominal: Reports: No Symptoms Reported - Vitals Vitals: Last Vital Signs Temp 36.6 C 03/06/19 03:00 Pulse 76 03/06/19 06:11 Resp 16 03/06/19 06:11 BP 146/55 03/06/19 03:00 Pulse Ox 94 03/06/19 06:01 - Exam Constitutional: Present: Alert, Elderly, Thin and frail Respiratory: Present: normal breath sounds, No wheezing Cardiovascular/Chest: Present: regular rate, rhythm Abdomen: Present: nontender Extremity: Absent: lower extremity edema Assessment/Plan - Problems/Diagnosis (1) Alzheimer's dementia Problem: Chronic Qualifiers: Alzheimer's disease onset: late-onset Dementia behavioral disturbance: without behavioral disturbance Qualified Code(s): G30.1 - Alzheimer's disease with late onset; F02.80 - Dementia in other diseases classified elsewhere without behavioral disturbance Narrative: Patient is having a court date this week to determine guardianship. She will remain here until this is been decided and she can been placed in a facility. She is unable to care for herself at home. (2) COPD (chronic obstructive pulmonary disease) Problem: Chronic Qualifiers: COPD type: chronic bronchitis Narrative: DuoNeb treatments resumed yesterday evening, as the initial order had timed out. No wheezing on exam this morning. (3) Frailty syndrome in geriatric patient Problem: Chronic (4) Anemia Problem: Chronic Qualifiers: Anemia type: unspecified type Qualified Code(s): D64.9 - Anemia, unspecified (5) Self-care deficit for feeding, bathing, and toileting Problem: Chronic (6) Unsatisfactory living conditions Problem: Chronic (7) Need for protective service Problem: Chronic (8) Failure to thrive Problem: Chronic
[2019-03-06] MEDS: MIRTAZAPINE 15 MG TABLET PO SCH (20:40)
[2019-03-06] MEDS: diphenhydrAMINE HCL 25 MG CAPSULE PO SCH (20:40)
[2019-03-06] MEDS: ALBUTEROL SULFATE/IPRATROPIUM 3 ML NEBU IH PRN (20:51)
[2019-03-07] MEDS: ALBUTEROL SULFATE 2.5 MG/0.5 ML VIAL.NEB IH SCH ×4 (06:02→19:08)
[2019-03-07] MEDS: PANTOPRAZOLE SODIUM 20 MG TABLET.DR PO SCH (06:20)
--- NOTE | 2019-03-07 08:29 | PN ---
Subjective - Date and Time Seen Date: 03/07/19 Time: 08:23 Subjective Narrative: Patient NAD. Sleepy. Answers queries with "Uhum" Objective - Review of Systems Misc: All systems neg except as marked - unreilable due to mental status - Vitals Vitals: Last Vital Signs Temp 36.8 C 03/07/19 06:00 Pulse 78 03/07/19 06:10 Resp 16 03/07/19 06:10 BP 138/54 03/07/19 06:00 Pulse Ox 94 03/07/19 06:02 - Exam Constitutional: Present: Alert - AAo x 1, Elderly, Thin and frail ENT Exam: Present: hearing grossly normal Neck: Present: supple Respiratory: Present: decreased breath sounds, No rales, No wheezing Cardiovascular/Chest: Present: regular rate, rhythm, no JVD, no murmur Abdomen: Present: Normal bowel sounds, soft, nontender, nondistended Extremity: Present: no pedal edema, no calf tenderness Assessment/Plan Plan Narrative: Still awaiting for guardianship from court. [facility] is working on it and has court hearing tomorrow. . continue with present management. - Problems/Diagnosis (1) Scalp hematoma Problem: Acute Qualifiers: Encounter type: initial encounter Qualified Code(s): S00.03XA - Contusion of scalp, initial encounter (2) Rib pain on left side Problem: Resolved (3) Failure to thrive Problem: Chronic (4) Severe malnutrition Problem: Acute (5) Alzheimer's dementia Problem: Chronic Qualifiers: Alzheimer's disease onset: late-onset Dementia behavioral disturbance: without behavioral disturbance Qualified Code(s): G30.1 - Alzheimer's disease with late onset; F02.80 - Dementia in other diseases classified elsewhere without behavioral disturbance (6) Frailty syndrome in geriatric patient Problem: Chronic (7) Anemia Problem: Chronic Qualifiers: Anemia type: unspecified type Qualified Code(s): D64.9 - Anemia, unspecified (8) Need for protective service Problem: Chronic (9) Osteoarthritis Problem: Chronic Qualifiers: Osteoarthritis location: hip
[2019-03-07] MEDS: DOCUSATE SODIUM 100 MG CAPSULE PO SCH (08:37)
[2019-03-07] MEDS: FERROUS SULFATE 325 MG TABLET PO SCH (08:38)
[2019-03-07] MEDS: DONEPEZIL HCL 5 MG TABLET PO SCH (08:38)
[2019-03-07] MEDS: MEMANTINE HCL 10 MG TABLET PO SCH ×2 (08:44→20:07)
[2019-03-07] MEDS: diphenhydrAMINE HCL 25 MG CAPSULE PO SCH (20:07)
[2019-03-07] MEDS: MIRTAZAPINE 15 MG TABLET PO SCH (20:08)
[2019-03-07] MEDS: ALBUTEROL SULFATE/IPRATROPIUM 3 ML NEBU IH PRN (21:13)
[2019-03-08] MEDS: ALBUTEROL SULFATE 2.5 MG/0.5 ML VIAL.NEB IH SCH ×4 (06:01→18:18)
--- NOTE | 2019-03-08 08:14 | PN ---
Subjective - Date and Time Seen Date: 03/08/19 Time: 08:09 Subjective Narrative: Patient NAD. Afebrile. No issues overnight except trying to get out ofher bed removing SCD's and alarm. Objective - Review of Systems Misc: All systems neg except as marked - unreliable due to mental status - Vitals Vitals: Last Vital Signs Temp 37 C 03/08/19 00:00 Pulse 78 03/08/19 06:08 Resp 16 03/08/19 06:08 BP 124/52 03/08/19 00:00 Pulse Ox 98 03/08/19 06:01 - Exam Constitutional: Present: Alert - AAO x 1, Elderly, Thin and frail ENT Exam: Present: hearing grossly normal Neck: Present: supple Respiratory: Present: normal breath sounds, No rales, No wheezing Cardiovascular/Chest: Present: regular rate, rhythm, no JVD, no murmur Abdomen: Present: Normal bowel sounds, soft, nontender, nondistended Extremity: Present: no pedal edema, no calf tenderness Skin Exam: Present: other - scab- left frontotemporal area Assessment/Plan Plan Narrative: awaiting results of court hearing of today. continue with present management. will do labs. last one was 1 week ago. - Problems/Diagnosis (1) Failure to thrive Problem: Chronic (2) Severe malnutrition Problem: Acute (3) Alzheimer's dementia Problem: Chronic Qualifiers: Alzheimer's disease onset: late-onset Dementia behavioral disturbance: without behavioral disturbance Qualified Code(s): G30.1 - Alzheimer's disease with late onset; F02.80 - Dementia in other diseases classified elsewhere without behavioral disturbance (4) Frailty syndrome in geriatric patient Problem: Chronic (5) Anemia Problem: Chronic Qualifiers: Anemia type: unspecified type Qualified Code(s): D64.9 - Anemia, unspecified (6) Need for protective service Problem: Chronic (7) Osteoarthritis Problem: Chronic Qualifiers: Osteoarthritis location: hip (8) Scalp hematoma Problem: Resolved Qualifiers: Encounter type: initial encounter Qualified Code(s): S00.03XA - Contusion of scalp, initial encounter (9) Rib pain on left side Problem: Resolved
[2019-03-08 08:15] LABS: Hematocrit 31.1 % (37.0-47.0); Hemoglobin 9.6 gm/dL (12.5-16.0); Mean Cell Volume 95.1 fl (78-100); Mean Corpuscular Hemoglobin 29.4 pg (27-31); Mean Corpuscular Hgb Conc 30.9 g/dl (32-36); Mean Platelet Volume 9.5 fl (8-12.5); Neutrophil # 2.8 K/mm3 (1.3-6.0); Neutrophil % 53.2 % (42-75.0); Platelet Count 321 K/mm3 (150-450); Red Blood Count 3.27 M/mm3 (4.2-5.4); Red Cell Distribution Width 20.1 % (11.5-14.0); White Blood Count 5.3 K/mm3 (4.0-10.5)
[2019-03-08 08:22] LABS: Anion Gap 12.2 mmol/L (6.8-13.8); BUN/Creatinine Ratio 25.5 (9.0-21.6); Carbon Dioxide 26.7 mmol/L (24-32.6); Estimated Creat Clear 28.2; Potassium 3.9 mmol/L (3.4-4.6)
[2019-03-08] MEDS: DONEPEZIL HCL 5 MG TABLET PO SCH (09:01)
[2019-03-08] MEDS: MEMANTINE HCL 10 MG TABLET PO SCH ×2 (09:01→21:33)
[2019-03-08] MEDS: FERROUS SULFATE 325 MG TABLET PO SCH (09:01)
[2019-03-08] MEDS: DOCUSATE SODIUM 100 MG CAPSULE PO SCH (09:01)
[2019-03-08] MEDS: PANTOPRAZOLE SODIUM 20 MG TABLET.DR PO SCH (09:01)
[2019-03-08] MEDS: diphenhydrAMINE HCL 25 MG CAPSULE PO SCH (21:33)
[2019-03-08] MEDS: MIRTAZAPINE 15 MG TABLET PO SCH (21:34)
[2019-03-09] MEDS ORDERED: ALBUTEROL SULFATE/IPRATROPIUM 3 ML NEBU IH ONE (01:56)
[2019-03-09] MEDS: ALBUTEROL SULFATE/IPRATROPIUM 3 ML NEBU IH PRN ×3 (01:57→23:59)
[2019-03-09] MEDS: ALBUTEROL SULFATE 2.5 MG/0.5 ML VIAL.NEB IH SCH ×4 (05:59→18:00)
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
[2019-03-09] MEDS: FERROUS SULFATE 325 MG TABLET PO SCH (09:06)
[2019-03-09] MEDS: DONEPEZIL HCL 5 MG TABLET PO SCH (09:06)
[2019-03-09] MEDS: DOCUSATE SODIUM 100 MG CAPSULE PO SCH (09:06)
[2019-03-09] MEDS: MEMANTINE HCL 10 MG TABLET PO SCH ×2 (09:06→21:24)
[2019-03-09] MEDS: PANTOPRAZOLE SODIUM 20 MG TABLET.DR PO SCH (09:06)
[2019-03-09] MEDS: diphenhydrAMINE HCL 25 MG CAPSULE PO SCH (21:24)
[2019-03-09] MEDS: MIRTAZAPINE 15 MG TABLET PO SCH (21:24)
[2019-03-10] MEDS: ALBUTEROL SULFATE 2.5 MG/0.5 ML VIAL.NEB IH SCH (06:09)
[2019-03-10] MEDS: PANTOPRAZOLE SODIUM 20 MG TABLET.DR PO SCH (07:18)
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
[2019-03-10] MEDS: DONEPEZIL HCL 5 MG TABLET PO SCH (08:19)
[2019-03-10] MEDS: DOCUSATE SODIUM 100 MG CAPSULE PO SCH (08:19)
[2019-03-10] MEDS: FERROUS SULFATE 325 MG TABLET PO SCH (08:19)
[2019-03-10] MEDS: MEMANTINE HCL 10 MG TABLET PO SCH (08:20)
[2019-03-10 09:47] VITALS: BP 119/50
== END 2019-03-10 10:15 ==
LOC: MS 14:32 → ER 14:32 → MS 17:30
PROVIDERS: ADMIT Internal Medicine; ATTEND Internal Medicine
DX: R07.81 Pleurodynia; G30.1 Alzheimer's disease with late onset; E43 Unspecified severe protein-calorie malnutrition; F02.80 Dementia in other diseases classified elsewhere, unspecified severity, without behavioral disturbance, psychotic disturbance, mood disturbance, and anxiety; R54 Age-related physical debility; D64.9 Anemia, unspecified; W19.XXXA Unspecified fall, initial encounter; M16.10 Unilateral primary osteoarthritis, unspecified hip; S00.03XA Contusion of scalp, initial encounter
CPT/HCPCS: 36415; 70450; 71100; 73030; 73502; 80048; 80053; 82272; 85025; 92526; 92610; 94640; 94664; 96365; 96366; 96367; 96372; 97110; 97116; 97163; 97165; 97530; 99285; G0378